=== PATIENT | male | born 1975 | race Caucasian/White ===

== ENCOUNTER 2017-02-16 11:15 | Inpatient (IN) | payer OTHER ==
[2017-02-16] MEDS ORDERED: Sodium Chloride 0.9% 1,000 ML IV ONE ×3 (11:42→13:04)
[2017-02-16] MEDS ORDERED: Sodium Chloride 0.9% 10 ML Syringe FLUSH PRN (11:42)
[2017-02-16] MEDS ORDERED: Morphine 2 MG/ML Syringe IVPUSH ONE (11:42)
[2017-02-16] MEDS ORDERED: Dicyclomine 10 MG Cap PO ONE (11:42)
[2017-02-16] MEDS ORDERED: Ondansetron 4 MG/2 ML SDV IVPUSH ONE (11:42)
[2017-02-16] MEDS ORDERED: Sodium Chloride 0.9% 2.5 ML Syringe FLUSH PRN (11:42)
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
[2017-02-16 12:42] LABS: CHLORIDE,CL 101 mmol/L (98-110); SODIUM,NA 140 mmol/L (136-146)
--- NOTE | 2017-02-16 13:07 | CR ---
EXAMINATION: Abdomen HISTORY: Pain COMPARISON: None TECHNIQUE: AP and upright views FINDINGS: No free air under the diaphragm. There is gas noted within the transverse and sigmoid colon . No definite rectal gas. There are a few loops of prominent small bowel measuring up to 4.4 cm with scattered bubbles of gas also demonstrated throughout the small bowel. No organomegaly. No abnormal c alcifications project over the kidneys. Postsurgical changes noted within the lumbar spine. There is an IVC filter noted. Degenerative changes noted within the hips, right greater than left. IMPRESSION: 1. Few dilated loops of small bowel with a moderate amount of gas noted within the colon. This could represent an ileus or partial bowel obstruction.
[2017-02-16] MEDS ORDERED: Iopamidol 755 MG/ML 500 ML Multipack Bottle IVPUSH STA (13:49)
[2017-02-16] MEDS ORDERED: Ketorolac 30 MG/ML SDV IVPUSH ONE (15:12)
--- NOTE | 2017-02-16 15:17 | CT ---
CT of the abdomen and pelvis with contrast. HISTORY: Pain TECHNIQUE: Axial CT images were obtained of the abdomen and pelvis following administration of 100 mL of Isovue-370 in the left hand without complication. Coronal and sagittal reconstructions obtained. FINDINGS: The lung bases are clear, no pleural effusion. Mild atelectasis noted. The heart is normal in size wi thout a pericardial effusion. The liver appears hypodense, otherwise unremarkable. The spleen, right adrenal gland, and pancreas ap pear normal. There is a 1.7 cm left adrenal myelolipoma. The gallbladder demonstrates several folds, otherwise unremarkable. No bulky retroperitoneal lymphadenopathy or abdominal ascites. The kidneys enhance and function symmetrically without evidence of obstructive uropathy. There are mildly prominent loops of small bowel noted which are fluid-filled with several air-fluid l evels. There appears to be a transition point within the ileum within the right lower quadrant. The i leum distal to this is decompressed. There is however small amount of fluid and gas within the colon. Inflammation or stranding. The appendix appears normal. There is a small amount of free pelvic fluid . The urinary bladder is normal. No free air. Bilateral posterior fusion hardware is noted extending from L1 to L4 traversing a healed L3 fracture. IMPRESSION: 1. Mildly prominent loops of small bowel with air-fluid levels noted with a transition point within t he mid to distal ileum. This likely represents at least a partial bowel obstruction. 2. Mild fatty infiltration of the liver. 3. Trace free pelvic fluid. 4. Left adrenal myelolipoma.
[2017-02-16] MEDS ORDERED: Dextrose 5%-0.9% NaCl with KCl 1,000 ML IV SCH (15:45)
[2017-02-16] MEDS: Sodium Chloride 0.9% 1,000 ML IV SCH ×2 (16:00→22:43)
[2017-02-16] MEDS: Morphine 2 MG/ML Syringe IVPUSH PRN ×3 (18:24→22:53)
[2017-02-16] MEDS: Ciprofloxacin in D5W 400 MG in Premix Bag 1 BAG IV SCH ×2 (22:44)
[2017-02-16] MEDS: metroNIDAZOLE/Normal Saline 500 MG in Premix Bag 1 BAG IV SCH (23:55)
[2017-02-17] MEDS: Morphine 2 MG/ML Syringe IVPUSH PRN ×7 (01:06→21:37)
[2017-02-17 05:28] LABS: CHLORIDE,CL 108 mmol/L (98-110); SODIUM,NA 144 mmol/L (136-146)
[2017-02-17] MEDS: metroNIDAZOLE/Normal Saline 500 MG in Premix Bag 1 BAG IV SCH ×3 (06:22→23:14)
[2017-02-17] MEDS: Ciprofloxacin in D5W 400 MG in Premix Bag 1 BAG IV SCH ×4 (09:05→21:57)
[2017-02-17] MEDS: Sodium Chloride 0.9% 1,000 ML IV SCH ×2 (09:06→18:34)
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
--- NOTE | 2017-02-17 10:25 | PCM.PN ---
- Review of Systems Systems Review Comment:: abdominal pain improving, had several loose stools - Patient Data Vitals - Most Recent: Last Vital Signs Temp 37.6 C 02/17/17 08:00 Pulse 101 H 02/17/17 08:00 Resp 16 02/17/17 08:00 BP 137/84 02/17/17 08:00 Pulse Ox 91 L 02/17/17 08:00 Weight - Most Recent: 97 kg I&O - Last 24 Hours: Intake & Output 02/16/17 02/17/17 02/17/17 22:59 06:59 14:59 Intake Total 1200 440 200 Output Total 0 350 Balance 1200 90 200 Lab Results Last 24 Hours: Laboratory Results - last 24 hr 02/16/17 02/17/17 02/17/17 Range/Units 19:15 04:45 04:45 WBC 3.61 L (4.0-11.0) K/uL RBC 4.76 (4.50-5.90) M/uL Hgb 13.6 (13.0-17.0) g/dL Hct 41.4 (38.0-50.0) % MCV 87.0 (80.0-98.0) fL MCH 28.6 (27.0-32.0) pg MCHC 32.9 (31.0-37.0) g/dL RDW Std Deviation 44.2 (28.0-62.0) fl RDW Coeff of Jarret 14 (11.0-15.0) % Plt Count 174 (150-400) K/uL MPV 9.60 (7.40-12.00) fL Add Manual Diff YES Neutrophils % (Manual) 57 (48.0-80.0) % Band Neutrophils % 11 % Lymphocytes % (Manual) 21 (16.0-40.0) % Monocytes % (Manual) 11 (0.0-15.0) % Nucleated RBC % 0.0 /100WBC Absolute Seg Neuts 2.1 Band Neutrophils # 0.4 Lymphocytes # (Manual) 0.8 Monocytes # (Manual) 0.4 Nucleated RBCs # 0 K/uL Sodium 144 (136-146) mmol/L Potassium 3.5 (3.5-5.1) mmol/L Chloride 108 (98-110) mmol/L Carbon Dioxide 26 (21-31) mmol/L BUN 17 (6.0-23.0) mg/dL Creatinine 0.8 (0.6-1.5) mg/dL Est Cr Clr Drug Dosing 138.43 mL/min Estimated GFR (MDRD) > 60.0 ml/min Glucose 101 (60-110) mg/dL Calcium 7.8 L (8.8-10.8) mg/dL Urine Color YELLOW Urine Appearance CLEAR Urine pH 5.5 (5.0-8.0) Ur Specific [place] 1.015 (1.001-1.035) Urine Protein TRACE (NEGATIVE) mg/dL Urine Glucose (UA) NEGATIVE (NEGATIVE) mg/dL Urine Ketones 40 H (NEGATIVE) mg/dL Urine Occult Blood TRACE-INTACT (NEGATIVE) Urine Nitrite NEGATIVE (NEGATIVE) Urine Bilirubin SMALL H (NEGATIVE) Urine Ictotest NEGATIVE Urine Urobilinogen 1.0 (<2.0) EU/dL Ur Leukocyte Esterase NEGATIVE (NEGATIVE) Urine RBC 0-1 (0-2/HPF) Urine WBC 0-1 (0-5/HPF) Ur Epithelial Cells OCCASIONAL (NONE-FEW) Urine Bacteria FEW (NEGATIVE) Urine Mucus LIGHT (NONE-MOD) Simone Results Last 24 Hours: Microbiology 02/16/17 19:15 Campylobacter Antigen Assay - Final Stool / Feces - Stool, Liquid NEGATIVE CAMPYLOBACTER AG 02/16/17 19:15 Stool for WBCs - Final Stool / Feces - Stool, Liquid POSITIVE FOR WBC'S Med Orders - Current: Current Medications Sodium Chloride (Normal Saline) 1,000 mls @ 125 mls/hr IV ASDIRECTED [facility] Last Admin: 02/17/17 09:06 Dose: 125 mls/hr Ciprofloxacin/Dextrose 400 mg/ (Premix) 200 mls @ 200 mls/hr IV Q12H [facility] Last Admin: 02/17/17 09:05 Dose: 200 mls/hr Metronidazole 500 mg/ Premix 100 mls @ 100 mls/hr IV Q8H [facility] Last Admin: 02/17/17 06:22 Dose: 100 mls/hr Morphine Sulfate (Morphine) 2 mg IVPUSH Q4H PRN PRN Reason: Pain (severe 7-10) Stop: 02/17/17 17:20 Sodium Chloride (Saline Flush) 10 ml FLUSH ASDIRECTED PRN PRN Reason: Keep Vein Open Last Admin: 02/16/17 12:04 Dose: 10 ml Sodium Chloride (Saline Flush) 2.5 ml FLUSH ASDIRECTED PRN PRN Reason: Keep Vein Open Last Admin: 02/16/17 12:04 Dose: 2.5 ml Discontinued Medications Dicyclomine HCl (Bentyl) 20 mg PO ONETIME ONE Stop: 02/16/17 11:43 Last Admin: 02/16/17 12:04 Dose: 20 mg Sodium Chloride (Normal Saline) 1,000 mls @ 999 mls/hr IV STAT ONE Stop: 02/16/17 12:42 Last Admin: 02/16/17 12:05 Dose: 999 mls/hr Sodium Chloride (Normal Saline) 1,000 mls @ 999 mls/hr IV STAT ONE Stop: 02/16/17 14:03 Last Admin: 02/16/17 13:09 Dose: 999 mls/hr Sodium Chloride (Normal Saline) 1,000 mls @ 999 mls/hr IV .BOLUS ONE Stop: 02/16/17 14:04 Last Admin: 02/16/17 16:22 Dose: Not Given Potassium Chloride/Dextrose/Sod Cl (D5 Ns With 20 Meq Kcl) 1,000 mls @ 150 mls/ hr IV ASDIRECTED [facility] Iopamidol (Isovue Multipack-370 (76%)) 100 ml IVPUSH ONETIME STA Stop: 02/16/17 13:50 Last Admin: 02/16/17 13:50 Dose: 100 ml Ketorolac Tromethamine (Toradol) 30 mg IVPUSH ONETIME ONE Stop: 02/16/17 15:13 Last Admin: 02/16/17 15:16 Dose: 30 mg Morphine Sulfate (Morphine) 4 mg IVPUSH ONETIME ONE Stop: 02/16/17 11:43 Last Admin: 02/16/17 12:03 Dose: 4 mg Morphine Sulfate (Morphine) 2 mg IVPUSH Q2H PRN PRN Reason: Pain (severe 7-10) Stop: 02/17/17 17:20 Last Admin: 02/17/17 09:04 Dose: 2 mg Ondansetron HCl (Zofran) 4 mg IVPUSH ONETIME ONE Stop: 02/16/17 11:43 Last Admin: 02/16/17 12:03 Dose: 4 mg - Exam General: Alert, Oriented HEENT: Mucous Membr. Moist/[place] Neck: Supple Cardiovascular: Regular Rate, Regular Rhythm GI/Abdominal Exam: Normal Bowel Sounds, Soft, Non-Tender, No Distention Extremities: Non-Tender, No Pedal Edema - Problem List Review Problem List Initiated/Reviewed/Updated: Yes - My Orders Last 24 Hours: My Active Orders 02/16/17 16:00 Sodium Chloride 0.9% [Normal Saline] 1,000 ml IV ASDIRECTED 02/16/17 17:20 Intake and Output [RC] QSHIFT Oxygen Therapy [RC] PRN Up ad Ora [RC] ASDIRECTED Up to Chair [RC] ASDIRECTED Vital Signs [RC] Q4H Sequential Compression Device [OM.PC] Per Unit Routine Resuscitation Status Routine 02/16/17 17:21 Antiembolic Devices [RC] PER UNIT ROUTINE 02/16/17 22:00 Ciprofloxacin in D5W [Cipro in D5W 400 MG/200 ML] 400 mg Premix Bag 1 bag IV Q12H 02/16/17 22:30 metroNIDAZOLE/Normal Saline [Flagyl 500 MG in NS 100 ML] 500 mg Premix Bag 1 bag IV Q8H 02/17/17 09:56 Morphine 2 mg IVPUSH Q4H PRN 02/17/17 Lunch Clear Liquid Diet [DIET] 02/18/17 05:11 BASIC METABOLIC PANEL,BMP [CHEM] AM CBC WITH AUTO DIFF [HEME] AM 02/19/17 05:11 BASIC METABOLIC PANEL,BMP [CHEM] AM CBC WITH AUTO DIFF [HEME] AM - Plan Plan:: 41 yo male admitted with travelers diarrhea which has developed into a partial bowel obstruction. Treating with Ciprofloxcin and Flagyl. We will start clear liquids.
[2017-02-17] MEDS: Ondansetron 4 MG/2 ML SDV IVPUSH PRN ×2 (15:35→21:37)
[2017-02-17] MEDS: LORazepam 2 MG/ML MDV IVPUSH PRN ×2 (15:36→23:15)
--- NOTE | 2017-02-17 16:45 | CR ---
EXAMINATION: Abdomen HISTORY: Partial small bowel obstruction COMPARISON: CT from the day prior. TECHNIQUE: AP and upright views of the abdomen FINDINGS: Again noted are multiple dilated loops of small bowel measuring up to 5 cm. Gas is noted wi thin the colon to the sigmoid level. Postsurgical changes are noted in the lumbar spine. No abnormal calcifications. No organomegaly. Degenerative changes noted within the hips. There is an IVC filter. IMPRESSION: 1. Persistent dilated loops of small bowel without significant change.
[2017-02-18] MEDS: Morphine 2 MG/ML Syringe IVPUSH PRN ×4 (03:21→23:41)
[2017-02-18] MEDS: Ondansetron 4 MG/2 ML SDV IVPUSH PRN (03:21)
[2017-02-18] MEDS: Sodium Chloride 0.9% 1,000 ML IV SCH ×3 (04:38→23:07)
[2017-02-18 05:47] LABS: CHLORIDE,CL 105 mmol/L (98-110); SODIUM,NA 141 mmol/L (136-146)
[2017-02-18] MEDS: metroNIDAZOLE/Normal Saline 500 MG in Premix Bag 1 BAG IV SCH ×3 (06:37→23:46)
[2017-02-18] MEDS: LORazepam 2 MG/ML MDV IVPUSH PRN ×2 (08:59→19:53)
[2017-02-18] MEDS: Ciprofloxacin in D5W 400 MG in Premix Bag 1 BAG IV SCH ×4 (08:59→22:32)
--- NOTE | 2017-02-18 09:12 | PCM.SN ---
- Free Text/Narrative Note: consult was called for possible bowel obstruction, but pt just received morphine and is sound sleeping and snoring, cannot be awaken with loud noice or name calling; will see tomorrow
--- NOTE | 2017-02-18 09:21 | PCM.SN ---
- Free Text/Narrative Note: pt seen, chart reviewed; resolving ileus vs pSBO, will start clear liquid diet, and do not advance; will follow w no [id number]
--- NOTE | 2017-02-18 10:53 | PCM.PN ---
- Review of Systems Systems Review Comment:: abdominal pain is improving, had small liquid bowel movement last night. - Patient Data Vitals - Most Recent: Last Vital Signs Temp 36.6 C 02/18/17 08:00 Pulse 84 02/18/17 08:00 Resp 20 02/18/17 08:00 BP 133/84 02/18/17 08:00 Pulse Ox 96 02/18/17 08:00 Weight - Most Recent: 97 kg I&O - Last 24 Hours: Intake & Output 02/17/17 02/18/17 02/18/17 22:59 06:59 14:59 Intake Total 2863 1340 200 Output Total 5 Balance 2863 1335 200 Lab Results Last 24 Hours: Laboratory Results - last 24 hr 02/18/17 02/18/17 Range/Units 04:53 04:53 WBC 5.39 (4.0-11.0) K/uL RBC 4.71 (4.50-5.90) M/uL Hgb 13.5 (13.0-17.0) g/dL Hct 40.4 (38.0-50.0) % MCV 85.8 (80.0-98.0) fL MCH 28.7 (27.0-32.0) pg MCHC 33.4 (31.0-37.0) g/dL RDW Std Deviation 42.3 (28.0-62.0) fl RDW Coeff of Jarret 13 (11.0-15.0) % Plt Count 164 (150-400) K/uL MPV 9.40 (7.40-12.00) fL Add Manual Diff YES Neutrophils % (Manual) 62 (48.0-80.0) % Band Neutrophils % 10 % Lymphocytes % (Manual) 18 (16.0-40.0) % Monocytes % (Manual) 9 (0.0-15.0) % Eosinophils % (Manual) 1 (0.0-7.0) % Nucleated RBC % 0.0 /100WBC Absolute Seg Neuts 3.3 (1.4-5.7) Band Neutrophils # 0.5 Lymphocytes # (Manual) 1.0 (0.6-2.4) Monocytes # (Manual) 0.5 (0.0-0.8) Eosinophils # (Manual) 0.1 (0.0-0.7) Nucleated RBCs # 0 K/uL Sodium 141 (136-146) mmol/L Potassium 3.4 L (3.5-5.1) mmol/L Chloride 105 (98-110) mmol/L Carbon Dioxide 27 (21-31) mmol/L BUN 10 (6.0-23.0) mg/dL Creatinine 0.7 (0.6-1.5) mg/dL Est Cr Clr Drug Dosing 158.20 mL/min Estimated GFR (MDRD) > 60.0 ml/min Glucose 100 (60-110) mg/dL Calcium 7.8 L (8.8-10.8) mg/dL Simone Results Last 24 Hours: Microbiology 02/16/17 19:15 Campylobacter Antigen Assay - Final Stool / Feces - Stool, Liquid NEGATIVE CAMPYLOBACTER AG - Final NEGATIVE FOR SHIGA TOXIN 1 - Final NEGATIVE FOR SHIGA TOXIN 2 Med Orders - Current: Current Medications Sodium Chloride (Normal Saline) 1,000 mls @ 125 mls/hr IV ASDIRECTED [facility] Last Admin: 02/18/17 04:38 Dose: 125 mls/hr Ciprofloxacin/Dextrose 400 mg/ (Premix) 200 mls @ 200 mls/hr IV Q12H [facility] Last Admin: 02/18/17 08:59 Dose: 200 mls/hr Metronidazole 500 mg/ Premix 100 mls @ 100 mls/hr IV Q8H [facility] Last Admin: 02/18/17 06:37 Dose: 100 mls/hr Lorazepam (Ativan) 1 mg IVPUSH Q6H PRN PRN Reason: Anxiety Last Admin: 02/18/17 08:59 Dose: 1 mg Morphine Sulfate (Morphine) 2 mg IVPUSH Q2H PRN PRN Reason: Pain Last Admin: 02/18/17 06:42 Dose: 2 mg Ondansetron HCl (Zofran) 4 mg IVPUSH Q4H PRN PRN Reason: Nausea Last Admin: 02/18/17 03:21 Dose: 4 mg Sodium Chloride (Saline Flush) 10 ml FLUSH ASDIRECTED PRN PRN Reason: Keep Vein Open Last Admin: 02/16/17 12:04 Dose: 10 ml Sodium Chloride (Saline Flush) 2.5 ml FLUSH ASDIRECTED PRN PRN Reason: Keep Vein Open Last Admin: 02/16/17 12:04 Dose: 2.5 ml Discontinued Medications Dicyclomine HCl (Bentyl) 20 mg PO ONETIME ONE Stop: 02/16/17 11:43 Last Admin: 02/16/17 12:04 Dose: 20 mg Sodium Chloride (Normal Saline) 1,000 mls @ 999 mls/hr IV STAT ONE Stop: 02/16/17 12:42 Last Admin: 02/16/17 12:05 Dose: 999 mls/hr Sodium Chloride (Normal Saline) 1,000 mls @ 999 mls/hr IV STAT ONE Stop: 02/16/17 14:03 Last Admin: 02/16/17 13:09 Dose: 999 mls/hr Sodium Chloride (Normal Saline) 1,000 mls @ 999 mls/hr IV .BOLUS ONE Stop: 02/16/17 14:04 Last Admin: 02/16/17 16:22 Dose: Not Given Potassium Chloride/Dextrose/Sod Cl (D5 Ns With 20 Meq Kcl) 1,000 mls @ 150 mls/ hr IV ASDIRECTED [facility] Iopamidol (Isovue Multipack-370 (76%)) 100 ml IVPUSH ONETIME STA Stop: 02/16/17 13:50 Last Admin: 02/16/17 13:50 Dose: 100 ml Ketorolac Tromethamine (Toradol) 30 mg IVPUSH ONETIME ONE Stop: 02/16/17 15:13 Last Admin: 02/16/17 15:16 Dose: 30 mg Morphine Sulfate (Morphine) 4 mg IVPUSH ONETIME ONE Stop: 02/16/17 11:43 Last Admin: 02/16/17 12:03 Dose: 4 mg Morphine Sulfate (Morphine) 2 mg IVPUSH Q2H PRN PRN Reason: Pain (severe 7-10) Stop: 02/17/17 17:20 Last Admin: 02/17/17 09:04 Dose: 2 mg Morphine Sulfate (Morphine) 2 mg IVPUSH Q4H PRN PRN Reason: Pain (severe 7-10) Stop: 02/17/17 17:20 Last Admin: 02/17/17 17:03 Dose: 2 mg Ondansetron HCl (Zofran) 4 mg IVPUSH ONETIME ONE Stop: 02/16/17 11:43 Last Admin: 02/16/17 12:03 Dose: 4 mg - Exam General: Alert, Oriented HEENT: Mucous Membr. Moist/[place] Lungs: Clear to Auscultation, Normal Respiratory Effort Cardiovascular: Regular Rate, Regular Rhythm GI/Abdominal Exam: Soft, Tender (periumbilical) Extremities: No Pedal Edema Skin: Warm, Dry, Intact - Problem List Review Problem List Initiated/Reviewed/Updated: Yes - My Orders Last 24 Hours: My Active Orders 02/17/17 13:58 LORazepam [Ativan] 1 mg IVPUSH Q6H PRN Ondansetron [Zofran] 4 mg IVPUSH Q4H PRN 02/17/17 17:35 Morphine 2 mg IVPUSH Q2H PRN 02/17/17 17:36 Consult to Physician [CONS] Routine 02/17/17 17:41 Notify Provider Consults [RC] ASDIRECTED 02/17/17 17:58 NG [Nasogastric Orogastric Tube Insertion] [OM.PC] Routine 02/18/17 10:49 Admission Status [Patient Status] [ADT] Routine 02/18/17 Lunch Clear Liquid Diet [DIET] 02/19/17 05:11 BASIC METABOLIC PANEL,BMP [CHEM] AM CBC WITH AUTO DIFF [HEME] AM - Plan Plan:: 41 yo male admitted with travelers diarrhea which has developed into a partial bowel obstruction. Patient did not tolerate clear liquids yesterday and was made NPO and Dr. Yan was consulted. This morning patient's abdominal pain is improving so per Dr. Yan's recommendation will try clear liquids again.
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
[2017-02-18] MEDS ORDERED: oxyCODONE 5 MG Tab PO PRN (16:09)
[2017-02-19 05:37] LABS: CHLORIDE,CL 103 mmol/L (98-110); SODIUM,NA 139 mmol/L (136-146)
[2017-02-19] MEDS: metroNIDAZOLE/Normal Saline 500 MG in Premix Bag 1 BAG IV SCH ×3 (05:46→21:42)
[2017-02-19] MEDS: Morphine 2 MG/ML Syringe IVPUSH PRN (08:04)
[2017-02-19] MEDS ORDERED: Sodium Chloride 0.9% with KCl 1,000 ML IV SCH (08:15)
[2017-02-19] MEDS: Ondansetron 4 MG/2 ML SDV IVPUSH PRN (08:25)
[2017-02-19] MEDS ORDERED: Magnesium Sulfate/Water 4 GM in Premix Bag 1 BAG IV ONE (08:32)
--- NOTE | 2017-02-19 08:32 | PCM.PN ---
<Baluch,Jan - Last Filed: 02/19/17 08:24> - General Info Date of Service: 02/19/17 Admission Dx/Problem (Free Text): Admission Diagnosis/Problem Admission Diagnosis/Problem Intestinal obstruction Subjective Update: Patients stated no diarrhea or vomiting yesterday. Had clear liquids yesterday and developed nausea. Had diarrhea this morning. Attempted to eat jello this morning which caused vomiting. Abdominal pain 10/17. No fever/chills/night sweats. Functional Status: Reports: Ambulating, Urinating. Denies: Tolerating Diet - Review of Systems General: Denies: Fever, Chills, Night Sweats, Appetite HEENT: Reports: No Symptoms Pulmonary: Reports: No Symptoms Cardiovascular: Reports: No Symptoms Gastrointestinal: Reports: Abdominal Pain, Decreased Appetite, Diarrhea, Flatus , Nausea, Vomiting Genitourinary: Reports: No Symptoms Musculoskeletal: Reports: No Symptoms Skin: Reports: No Symptoms Neurological: Reports: No Symptoms - Patient Data Vitals - Most Recent: Last Vital Signs Temp 37.2 C 02/19/17 04:00 Pulse 80 02/19/17 04:00 Resp 18 02/19/17 04:00 BP 138/72 02/19/17 04:00 Pulse Ox 96 02/19/17 04:00 Weight - Most Recent: 97 kg I&O - Last 24 Hours: Intake & Output 02/18/17 02/19/17 02/19/17 22:59 06:59 14:59 Intake Total 3078 2163 Output Total 700 Balance 3078 1463 Lab Results Last 24 Hours: Laboratory Results - last 24 hr 02/19/17 02/19/17 02/19/17 Range/Units 04:46 04:46 04:46 WBC 5.04 (4.0-11.0) K/uL RBC 4.56 (4.50-5.90) M/uL Hgb 12.8 L (13.0-17.0) g/dL Hct 38.2 (38.0-50.0) % MCV 83.8 (80.0-98.0) fL MCH 28.1 (27.0-32.0) pg MCHC 33.5 (31.0-37.0) g/dL RDW Std Deviation 38.6 (28.0-62.0) fl RDW Coeff of Jarret 13 (11.0-15.0) % Plt Count 162 (150-400) K/uL MPV 9.20 (7.40-12.00) fL Neut % (Auto) 65.7 (48.0-80.0) % Lymph % (Auto) 19.4 (16.0-40.0) % [place] % (Auto) 13.1 (0.0-15.0) % Eos % (Auto) 1.4 (0.0-7.0) % Baso % (Auto) 0.4 (0.0-1.5) % Neut # (Auto) 3.3 (1.4-5.7) K/uL Lymph # (Auto) 1.0 (0.6-2.4) K/uL [place] # (Auto) 0.7 (0.0-0.8) K/uL Eos # (Auto) 0.1 (0.0-0.7) K/uL Baso # (Auto) 0.0 (0.0-0.1) K/uL Nucleated RBC % 0.0 /100WBC Nucleated RBCs # 0 K/uL Sodium 139 (136-146) mmol/L Potassium 3.4 L (3.5-5.1) mmol/L Chloride 103 (98-110) mmol/L Carbon Dioxide 28 (21-31) mmol/L BUN 7 (6.0-23.0) mg/dL Creatinine 0.7 (0.6-1.5) mg/dL Est Cr Clr Drug Dosing 158.20 mL/min Estimated GFR (MDRD) > 60.0 ml/min Glucose 94 (60-110) mg/dL Calcium 8.0 L (8.8-10.8) mg/dL Magnesium 1.5 (1.5-2.3) mEq/L Med Orders - Current: Current Medications Sodium Chloride (Normal Saline) 1,000 mls @ 125 mls/hr IV ASDIRECTED [facility] Last Admin: 02/18/17 23:07 Dose: 125 mls/hr Ciprofloxacin/Dextrose 400 mg/ (Premix) 200 mls @ 200 mls/hr IV Q12H [facility] Last Admin: 02/18/17 22:32 Dose: 200 mls/hr Metronidazole 500 mg/ Premix 100 mls @ 100 mls/hr IV Q8H [facility] Last Admin: 02/19/17 05:46 Dose: 100 mls/hr Potassium Chloride/Sodium Chloride (Normal Saline With 40 Meq Kcl) 1,000 mls @ 125 mls/hr IV ASDIRECTED [facility] Lorazepam (Ativan) 1 mg IVPUSH Q6H PRN PRN Reason: Anxiety Last Admin: 02/18/17 19:53 Dose: 1 mg Morphine Sulfate (Morphine) 2 mg IVPUSH Q2H PRN PRN Reason: Pain Last Admin: 02/19/17 08:04 Dose: 2 mg Ondansetron HCl (Zofran) 4 mg IVPUSH Q4H PRN PRN Reason: Nausea Last Admin: 02/18/17 03:21 Dose: 4 mg Oxycodone HCl (Oxycodone) 5 mg PO Q4H PRN PRN Reason: Pain Last Admin: 02/18/17 16:24 Dose: 5 mg Sodium Chloride (Saline Flush) 10 ml FLUSH ASDIRECTED PRN PRN Reason: Keep Vein Open Last Admin: 02/16/17 12:04 Dose: 10 ml Sodium Chloride (Saline Flush) 2.5 ml FLUSH ASDIRECTED PRN PRN Reason: Keep Vein Open Last Admin: 02/16/17 12:04 Dose: 2.5 ml Discontinued Medications Dicyclomine HCl (Bentyl) 20 mg PO ONETIME ONE Stop: 02/16/17 11:43 Last Admin: 02/16/17 12:04 Dose: 20 mg Sodium Chloride (Normal Saline) 1,000 mls @ 999 mls/hr IV STAT ONE Stop: 02/16/17 12:42 Last Admin: 02/16/17 12:05 Dose: 999 mls/hr Sodium Chloride (Normal Saline) 1,000 mls @ 999 mls/hr IV STAT ONE Stop: 02/16/17 14:03 Last Admin: 02/16/17 13:09 Dose: 999 mls/hr Sodium Chloride (Normal Saline) 1,000 mls @ 999 mls/hr IV .BOLUS ONE Stop: 02/16/17 14:04 Last Admin: 02/16/17 16:22 Dose: Not Given Potassium Chloride/Dextrose/Sod Cl (D5 Ns With 20 Meq Kcl) 1,000 mls @ 150 mls/ hr IV ASDIRECTED [facility] Iopamidol (Isovue Multipack-370 (76%)) 100 ml IVPUSH ONETIME STA Stop: 02/16/17 13:50 Last Admin: 02/16/17 13:50 Dose: 100 ml Ketorolac Tromethamine (Toradol) 30 mg IVPUSH ONETIME ONE Stop: 02/16/17 15:13 Last Admin: 02/16/17 15:16 Dose: 30 mg Morphine Sulfate (Morphine) 4 mg IVPUSH ONETIME ONE Stop: 02/16/17 11:43 Last Admin: 02/16/17 12:03 Dose: 4 mg Morphine Sulfate (Morphine) 2 mg IVPUSH Q2H PRN PRN Reason: Pain (severe 7-10) Stop: 02/17/17 17:20 Last Admin: 02/17/17 09:04 Dose: 2 mg Morphine Sulfate (Morphine) 2 mg IVPUSH Q4H PRN PRN Reason: Pain (severe 7-10) Stop: 02/17/17 17:20 Last Admin: 02/17/17 17:03 Dose: 2 mg Ondansetron HCl (Zofran) 4 mg IVPUSH ONETIME ONE Stop: 02/16/17 11:43 Last Admin: 02/16/17 12:03 Dose: 4 mg - Exam General: Alert, Oriented, Cooperative, Mild Distress HEENT: Pupils Equal, Pupils Reactive Neck: Supple Lungs: Clear to Auscultation, Normal Respiratory Effort Cardiovascular: Regular Rate, Regular Rhythm GI/Abdominal Exam: Distended, Tender, Other (bowel sounds present ). No: Guarding, Rigid, Rebound Extremities: Other (LLE: diffuse atrophy ) Neurological: No New Focal Deficit - Problem List Review Problem List Initiated/Reviewed/Updated: Yes - My Orders Last 24 Hours: My Active Orders 02/19/17 08:15 Sodium Chloride 0.9% with KCl [Normal Saline with 40 mEq KCl] 1,000 ml IV ASDIRECTED - Plan Plan:: 41 yo male with history of Spinal cord Injury admitted for Travellers Diarrhea complicated by Partial Bowel Obstruction. Dr. Yan, General Surgery has been consulted and is on case. Appreciate the rec's. 1. Partial Bowel Obstruction: possibly related to patients history of spinal cord injury. Diet was advanced to clear liquids yesterday. Diarrhea/Vomiting/ Pain worsening. Abdominal distension present this morning. Will change diet back to NPO. Diet is to be advanced as per Dr. Yan's orders. 2. Travellers Diarrhea: on IV Metro and Cipro. Diarrhea and pain worst this morning. Negative Campylobacter/Shiga Toxin. Awaiting Stool Culture. 3. Hypokalemia: Potassium 3.4 in AM. Administer 40 meq IV. check Mg level. 4. Hypomagnasemia: Magnesium 1.5 this morning. Administer 4 gm IV 5. DVT Prophylaxis: SCD's. consider starting Lovenox. <Nael Almonte - Last Filed: 02/19/17 20:15> - Patient Data Vitals - Most Recent: Last Vital Signs Temp 36.7 C 02/19/17 15:45 Pulse 72 02/19/17 15:45 Resp 18 02/19/17 15:45 BP 127/79 02/19/17 15:45 Pulse Ox 95 02/19/17 15:45 I&O - Last 24 Hours: Intake & Output 02/19/17 02/19/17 02/19/17 06:59 14:59 22:59 Intake Total 2163 1600 197 Output Total 700 700 Balance 1463 1600 -503 Lab Results Last 24 Hours: Laboratory Results - last 24 hr 02/19/17 02/19/17 02/19/17 Range/Units 04:46 04:46 04:46 WBC 5.04 (4.0-11.0) K/uL RBC 4.56 (4.50-5.90) M/uL Hgb 12.8 L (13.0-17.0) g/dL Hct 38.2 (38.0-50.0) % MCV 83.8 (80.0-98.0) fL MCH 28.1 (27.0-32.0) pg MCHC 33.5 (31.0-37.0) g/dL RDW Std Deviation 38.6 (28.0-62.0) fl RDW Coeff of Jarret 13 (11.0-15.0) % Plt Count 162 (150-400) K/uL MPV 9.20 (7.40-12.00) fL Neut % (Auto) 65.7 (48.0-80.0) % Lymph % (Auto) 19.4 (16.0-40.0) % [place] % (Auto) 13.1 (0.0-15.0) % Eos % (Auto) 1.4 (0.0-7.0) % Baso % (Auto) 0.4 (0.0-1.5) % Neut # (Auto) 3.3 (1.4-5.7) K/uL Lymph # (Auto) 1.0 (0.6-2.4) K/uL [place] # (Auto) 0.7 (0.0-0.8) K/uL Eos # (Auto) 0.1 (0.0-0.7) K/uL Baso # (Auto) 0.0 (0.0-0.1) K/uL Nucleated RBC % 0.0 /100WBC Nucleated RBCs # 0 K/uL Sodium 139 (136-146) mmol/L Potassium 3.4 L (3.5-5.1) mmol/L Chloride 103 (98-110) mmol/L Carbon Dioxide 28 (21-31) mmol/L BUN 7 (6.0-23.0) mg/dL Creatinine 0.7 (0.6-1.5) mg/dL Est Cr Clr Drug Dosing 158.20 mL/min Estimated GFR (MDRD) > 60.0 ml/min Glucose 94 (60-110) mg/dL Calcium 8.0 L (8.8-10.8) mg/dL Magnesium 1.5 (1.5-2.3) mEq/L Med Orders - Current: Current Medications Sodium Chloride (Normal Saline) 1,000 mls @ 125 mls/hr IV ASDIRECTED [facility] Last Admin: 02/18/17 23:07 Dose: 125 mls/hr Metronidazole 500 mg/ Premix 100 mls @ 100 mls/hr IV Q8H [facility] Last Admin: 02/19/17 13:43 Dose: 100 mls/hr Ciprofloxacin/Dextrose 400 mg/ (Premix) 200 mls @ 200 mls/hr IV Q12H [facility] Last Admin: 02/19/17 12:22 Dose: 200 mls/hr Ketorolac Tromethamine (Toradol) 30 mg IVPUSH Q8H PRN PRN Reason: Pain Stop: 02/24/17 12:34 Last Admin: 02/19/17 14:18 Dose: 30 mg Lorazepam (Ativan) 1 mg IVPUSH Q6H PRN PRN Reason: Anxiety Last Admin: 02/18/17 19:53 Dose: 1 mg Ondansetron HCl (Zofran) 4 mg IVPUSH Q4H PRN PRN Reason: Nausea Last Admin: 02/19/17 08:25 Dose: 4 mg Sodium Chloride (Saline Flush) 10 ml FLUSH ASDIRECTED PRN PRN Reason: Keep Vein Open Last Admin: 02/16/17 12:04 Dose: 10 ml Sodium Chloride (Saline Flush) 2.5 ml FLUSH ASDIRECTED PRN PRN Reason: Keep Vein Open Last Admin: 02/16/17 12:04 Dose: 2.5 ml Discontinued Medications Dicyclomine HCl (Bentyl) 20 mg PO ONETIME ONE Stop: 02/16/17 11:43 Last Admin: 02/16/17 12:04 Dose: 20 mg Sodium Chloride (Normal Saline) 1,000 mls @ 999 mls/hr IV STAT ONE Stop: 02/16/17 12:42 Last Admin: 02/16/17 12:05 Dose: 999 mls/hr Sodium Chloride (Normal Saline) 1,000 mls @ 999 mls/hr IV STAT ONE Stop: 02/16/17 14:03 Last Admin: 02/16/17 13:09 Dose: 999 mls/hr Sodium Chloride (Normal Saline) 1,000 mls @ 999 mls/hr IV .BOLUS ONE Stop: 02/16/17 14:04 Last Admin: 02/16/17 16:22 Dose: Not Given Potassium Chloride/Dextrose/Sod Cl (D5 Ns With 20 Meq Kcl) 1,000 mls @ 150 mls/ hr IV ASDIRECTED [facility] Ciprofloxacin/Dextrose 400 mg/ (Premix) 200 mls @ 200 mls/hr IV Q12H [facility] Last Admin: 02/19/17 10:37 Dose: Not Given Potassium Chloride/Sodium Chloride (Normal Saline With 40 Meq Kcl) 1,000 mls @ 125 mls/hr IV ASDIRECTED [facility] Stop: 02/19/17 16:14 Last Admin: 02/19/17 09:19 Dose: 125 mls/hr Magnesium Sulfate 4 gm/ Premix 100 mls @ 50 mls/hr IV STAT ONE Stop: 02/19/17 10:31 Last Admin: 02/19/17 09:29 Dose: 50 mls/hr Iopamidol (Isovue Multipack-370 (76%)) 100 ml IVPUSH ONETIME STA Stop: 02/16/17 13:50 Last Admin: 02/16/17 13:50 Dose: 100 ml Ketorolac Tromethamine (Toradol) 30 mg IVPUSH ONETIME ONE Stop: 02/16/17 15:13 Last Admin: 02/16/17 15:16 Dose: 30 mg Morphine Sulfate (Morphine) 4 mg IVPUSH ONETIME ONE Stop: 02/16/17 11:43 Last Admin: 02/16/17 12:03 Dose: 4 mg Morphine Sulfate (Morphine) 2 mg IVPUSH Q2H PRN PRN Reason: Pain (severe 7-10) Stop: 02/17/17 17:20 Last Admin: 02/17/17 09:04 Dose: 2 mg Morphine Sulfate (Morphine) 2 mg IVPUSH Q4H PRN PRN Reason: Pain (severe 7-10) Stop: 02/17/17 17:20 Last Admin: 02/17/17 17:03 Dose: 2 mg Morphine Sulfate (Morphine) 2 mg IVPUSH Q2H PRN PRN Reason: Pain Last Admin: 02/19/17 08:04 Dose: 2 mg Ondansetron HCl (Zofran) 4 mg IVPUSH ONETIME ONE Stop: 02/16/17 11:43 Last Admin: 02/16/17 12:03 Dose: 4 mg Oxycodone HCl (Oxycodone) 5 mg PO Q4H PRN PRN Reason: Pain Last Admin: 02/18/17 16:24 Dose: 5 mg - My Orders Last 24 Hours: My Active Orders 02/20/17 05:11 BASIC METABOLIC PANEL,BMP [CHEM] Routine CBC WITH AUTO DIFF [HEME] Routine - Free Text/Narrative Note: Concur with examination and plan as documented. Tonight patient has ambulated well and reports flatus passing.
[2017-02-19] MEDS: Ciprofloxacin in D5W 400 MG in Premix Bag 1 BAG IV SCH ×6 (10:37→23:41)
[2017-02-19] MEDS: Ketorolac 30 MG/ML SDV IVPUSH PRN (14:18)
--- NOTE | 2017-02-19 14:55 | CR ---
EXAMINATION: Abdomen HISTORY: Small bowel obstruction COMPARISON: 02/17/2017 TECHNIQUE: AP and upright views FINDINGS: Again noted are multiple dilated loops of small bowel measuring up to 5 cm. Overall the deg ree and number of dilated loops appears unchanged. Stool and gas is noted within the colon however, t o a lesser extent. No free air noted under the diaphragm. No abnormal calcifications. Postsurgical ch anges noted within the lumbar spine. An IVC filter is noted. Moderate degenerative changes noted with in the right hip. IMPRESSION: 1. Persistent moderately dilated loops of small bowel, grossly unchanged.
[2017-02-19] MEDS: Sodium Chloride 0.9% 1,000 ML IV SCH (22:46)
[2017-02-20] MEDS: Ketorolac 30 MG/ML SDV IVPUSH PRN ×3 (00:39→18:10)
[2017-02-20] MEDS: metroNIDAZOLE/Normal Saline 500 MG in Premix Bag 1 BAG IV SCH ×3 (06:08→21:31)
[2017-02-20 06:44] LABS: CHLORIDE,CL 104 mmol/L (98-110); SODIUM,NA 138 mmol/L (136-146)
[2017-02-20] MEDS: Sodium Chloride 0.9% 1,000 ML IV SCH ×2 (08:31→21:31)
[2017-02-20] MEDS: LORazepam 2 MG/ML MDV IVPUSH PRN ×2 (10:42→19:27)
[2017-02-20] MEDS ORDERED: Potassium Chloride 20 MEQ Tab.ER PO ONE ×2 (11:12→11:50)
[2017-02-20] MEDS ORDERED: Sodium Chloride 0.9% with KCl 1,000 ML IV ONE (11:12)
--- NOTE | 2017-02-20 11:15 | PCM.SURGPN ---
- General Info Date of Service: 02/20/17 Functional Status: Reports: Pain Controlled (passing flatus, more per pt; xray remained unchanged though w dilated loops of SB, wbc normal) - Review of Systems General: Reports: No Symptoms Gastrointestinal: Reports: No Symptoms - Patient Data Vitals - Most Recent: Last Vital Signs Temp 98.2 F 02/20/17 08:00 Pulse 70 02/20/17 08:00 Resp 19 02/20/17 08:00 BP 149/89 H 02/20/17 08:00 Pulse Ox 97 02/20/17 08:00 Weight - Most Recent: 213 lb 13.574 oz I&O - Last 24 Hours: Intake & Output 02/19/17 02/20/17 02/20/17 22:59 06:59 14:59 Intake Total 361 781 4367 Output Total 700 1750 Balance -503 -1550 1100 Lab Results Last 24 Hrs: Laboratory Results - last 24 hr 02/20/17 02/20/17 02/20/17 Range/Units 06:07 06:07 06:07 WBC 5.57 (4.0-11.0) K/uL RBC 4.73 (4.50-5.90) M/uL Hgb 13.3 (13.0-17.0) g/dL Hct 39.2 (38.0-50.0) % MCV 82.9 (80.0-98.0) fL MCH 28.1 (27.0-32.0) pg MCHC 33.9 (31.0-37.0) g/dL RDW Std Deviation 38.2 (28.0-62.0) fl RDW Coeff of Jarret 13 (11.0-15.0) % Plt Count 195 (150-400) K/uL MPV 9.30 (7.40-12.00) fL Neut % (Auto) 72.8 (48.0-80.0) % Lymph % (Auto) 15.1 L (16.0-40.0) % [place] % (Auto) 9.7 (0.0-15.0) % Eos % (Auto) 2.0 (0.0-7.0) % Baso % (Auto) 0.4 (0.0-1.5) % Neut # (Auto) 4.1 (1.4-5.7) K/uL Lymph # (Auto) 0.8 (0.6-2.4) K/uL [place] # (Auto) 0.5 (0.0-0.8) K/uL Eos # (Auto) 0.1 (0.0-0.7) K/uL Baso # (Auto) 0.0 (0.0-0.1) K/uL Nucleated RBC % 0.0 /100WBC Nucleated RBCs # 0 K/uL Sodium 138 (136-146) mmol/L Potassium 3.1 L (3.5-5.1) mmol/L Chloride 104 (98-110) mmol/L Carbon Dioxide 22 (21-31) mmol/L BUN 6 (6.0-23.0) mg/dL Creatinine 0.6 (0.6-1.5) mg/dL Est Cr Clr Drug Dosing 184.65 mL/min Estimated GFR (MDRD) > 60.0 ml/min Glucose 84 (60-110) mg/dL Calcium 8.0 L (8.8-10.8) mg/dL Magnesium 1.8 (1.5-2.3) mEq/L Med Orders - Current: Current Medications Sodium Chloride (Normal Saline) 1,000 mls @ 125 mls/hr IV ASDIRECTED [facility] Last Admin: 02/20/17 08:31 Dose: 125 mls/hr Metronidazole 500 mg/ Premix 100 mls @ 100 mls/hr IV Q8H [facility] Last Admin: 02/20/17 06:08 Dose: 100 mls/hr Ciprofloxacin/Dextrose 400 mg/ (Premix) 200 mls @ 200 mls/hr IV Q12H [facility] Last Admin: 02/19/17 23:41 Dose: 200 mls/hr Ketorolac Tromethamine (Toradol) 30 mg IVPUSH Q8H PRN PRN Reason: Pain Stop: 02/24/17 12:34 Last Admin: 02/20/17 08:39 Dose: 30 mg Lorazepam (Ativan) 1 mg IVPUSH Q6H PRN PRN Reason: Anxiety Last Admin: 02/20/17 10:42 Dose: 1 mg Ondansetron HCl (Zofran) 4 mg IVPUSH Q4H PRN PRN Reason: Nausea Last Admin: 02/19/17 08:25 Dose: 4 mg Sodium Chloride (Saline Flush) 10 ml FLUSH ASDIRECTED PRN PRN Reason: Keep Vein Open Last Admin: 02/16/17 12:04 Dose: 10 ml Sodium Chloride (Saline Flush) 2.5 ml FLUSH ASDIRECTED PRN PRN Reason: Keep Vein Open Last Admin: 02/16/17 12:04 Dose: 2.5 ml Discontinued Medications Dicyclomine HCl (Bentyl) 20 mg PO ONETIME ONE Stop: 02/16/17 11:43 Last Admin: 02/16/17 12:04 Dose: 20 mg Sodium Chloride (Normal Saline) 1,000 mls @ 999 mls/hr IV STAT ONE Stop: 02/16/17 12:42 Last Admin: 02/16/17 12:05 Dose: 999 mls/hr Sodium Chloride (Normal Saline) 1,000 mls @ 999 mls/hr IV STAT ONE Stop: 02/16/17 14:03 Last Admin: 02/16/17 13:09 Dose: 999 mls/hr Sodium Chloride (Normal Saline) 1,000 mls @ 999 mls/hr IV .BOLUS ONE Stop: 02/16/17 14:04 Last Admin: 02/16/17 16:22 Dose: Not Given Potassium Chloride/Dextrose/Sod Cl (D5 Ns With 20 Meq Kcl) 1,000 mls @ 150 mls/ hr IV ASDIRECTED [facility] Ciprofloxacin/Dextrose 400 mg/ (Premix) 200 mls @ 200 mls/hr IV Q12H [facility] Last Admin: 02/19/17 10:37 Dose: Not Given Potassium Chloride/Sodium Chloride (Normal Saline With 40 Meq Kcl) 1,000 mls @ 125 mls/hr IV ASDIRECTED [facility] Stop: 02/19/17 16:14 Last Admin: 02/19/17 09:19 Dose: 125 mls/hr Magnesium Sulfate 4 gm/ Premix 100 mls @ 50 mls/hr IV STAT ONE Stop: 02/19/17 10:31 Last Admin: 02/19/17 09:29 Dose: 50 mls/hr Iopamidol (Isovue Multipack-370 (76%)) 100 ml IVPUSH ONETIME STA Stop: 02/16/17 13:50 Last Admin: 02/16/17 13:50 Dose: 100 ml Ketorolac Tromethamine (Toradol) 30 mg IVPUSH ONETIME ONE Stop: 02/16/17 15:13 Last Admin: 02/16/17 15:16 Dose: 30 mg Morphine Sulfate (Morphine) 4 mg IVPUSH ONETIME ONE Stop: 02/16/17 11:43 Last Admin: 02/16/17 12:03 Dose: 4 mg Morphine Sulfate (Morphine) 2 mg IVPUSH Q2H PRN PRN Reason: Pain (severe 7-10) Stop: 02/17/17 17:20 Last Admin: 02/17/17 09:04 Dose: 2 mg Morphine Sulfate (Morphine) 2 mg IVPUSH Q4H PRN PRN Reason: Pain (severe 7-10) Stop: 02/17/17 17:20 Last Admin: 02/17/17 17:03 Dose: 2 mg Morphine Sulfate (Morphine) 2 mg IVPUSH Q2H PRN PRN Reason: Pain Last Admin: 02/19/17 08:04 Dose: 2 mg Ondansetron HCl (Zofran) 4 mg IVPUSH ONETIME ONE Stop: 02/16/17 11:43 Last Admin: 02/16/17 12:03 Dose: 4 mg Oxycodone HCl (Oxycodone) 5 mg PO Q4H PRN PRN Reason: Pain Last Admin: 02/18/17 16:24 Dose: 5 mg - Exam General: Alert, Oriented GI/Abdominal Exam: Normal Bowel Sounds (mildly distended), Soft - Problem List Review Problem List Initiated/Reviewed/Updated: Yes - My Orders Last 24 Hours: Active Orders 24 hr Category Date Time Status Communication Order [RC] PER UNIT ROUTINE Care 02/19/17 12:34 Active Clear Liquid Diet [DIET] Diet 02/20/17 Lunch Active Ciprofloxacin in D5W [Cipro in D5W 400 MG/200 ML] 400 Med 02/19/17 12:00 Active mg Premix Bag 1 bag IV Q12H Ketorolac [Toradol] Med 02/19/17 12:33 Active 30 mg IVPUSH Q8H PRN Medication Orders Sodium Chloride (Normal Saline) 1,000 mls @ 125 mls/hr IV ASDIRECTED [facility] Last Admin: 02/20/17 08:31 Dose: 125 mls/hr Infusion: 02/20/17 06:46 Dose: 125 mls/hr Admin: 02/19/17 22:46 Dose: 125 mls/hr Infusion: 02/19/17 07:07 Dose: 125 mls/hr Admin: 02/18/17 23:07 Dose: 125 mls/hr Infusion: 02/18/17 21:38 Dose: 125 mls/hr Admin: 02/18/17 13:38 Dose: 125 mls/hr Infusion: 02/18/17 12:38 Dose: 125 mls/hr Admin: 02/18/17 04:38 Dose: 125 mls/hr Infusion: 02/18/17 02:34 Dose: 125 mls/hr Admin: 02/17/17 18:34 Dose: 125 mls/hr Infusion: 02/17/17 17:06 Dose: 125 mls/hr Admin: 02/17/17 09:06 Dose: 125 mls/hr Infusion: 02/17/17 06:43 Dose: 125 mls/hr Admin: 02/16/17 22:43 Dose: 125 mls/hr Infusion: 02/16/17 22:43 Dose: 125 mls/hr Admin: 02/16/17 16:00 Dose: 125 mls/hr Metronidazole 500 mg/ Premix 100 mls @ 100 mls/hr IV Q8H [facility] Last Admin: 02/20/17 06:08 Dose: 100 mls/hr Infusion: 02/19/17 22:42 Dose: 100 mls/hr Admin: 02/19/17 21:42 Dose: 100 mls/hr Infusion: 02/19/17 14:43 Dose: 100 mls/hr Admin: 02/19/17 13:43 Dose: 100 mls/hr Infusion: 02/19/17 06:46 Dose: 100 mls/hr Admin: 02/19/17 05:46 Dose: 100 mls/hr Infusion: 02/19/17 00:46 Dose: 100 mls/hr Admin: 02/18/17 23:46 Dose: 100 mls/hr Infusion: 02/18/17 14:37 Dose: 100 mls/hr Admin: 02/18/17 13:37 Dose: 100 mls/hr Infusion: 02/18/17 07:37 Dose: 100 mls/hr Admin: 02/18/17 06:37 Dose: 100 mls/hr Infusion: 02/18/17 00:14 Dose: 100 mls/hr Admin: 02/17/17 23:14 Dose: 100 mls/hr Infusion: 02/17/17 14:35 Dose: 100 mls/hr Admin: 02/17/17 13:35 Dose: 100 mls/hr Infusion: 02/17/17 07:22 Dose: 100 mls/hr Admin: 02/17/17 06:22 Dose: 100 mls/hr Infusion: 02/17/17 00:55 Dose: 100 mls/hr Admin: 02/16/17 23:55 Dose: 100 mls/hr Ciprofloxacin/Dextrose 400 mg/ (Premix) 200 mls @ 200 mls/hr IV Q12H [facility] Last Admin: 02/19/17 23:41 Dose: 200 mls/hr Infusion: 02/19/17 13:22 Dose: 200 mls/hr Admin: 02/19/17 12:22 Dose: 200 mls/hr Ketorolac Tromethamine (Toradol) 30 mg IVPUSH Q8H PRN PRN Reason: Pain Stop: 02/24/17 12:34 Last Admin: 02/20/17 08:39 Dose: 30 mg Admin: 02/20/17 00:39 Dose: 30 mg Admin: 02/19/17 14:18 Dose: 30 mg Lorazepam (Ativan) 1 mg IVPUSH Q6H PRN PRN Reason: Anxiety Last Admin: 02/20/17 10:42 Dose: 1 mg Admin: 02/18/17 19:53 Dose: 1 mg Admin: 02/18/17 08:59 Dose: 1 mg Admin: 02/17/17 23:15 Dose: 1 mg Admin: 02/17/17 15:36 Dose: 1 mg Ondansetron HCl (Zofran) 4 mg IVPUSH Q4H PRN PRN Reason: Nausea Last Admin: 02/19/17 08:25 Dose: 4 mg Admin: 02/18/17 03:21 Dose: 4 mg Admin: 02/17/17 21:37 Dose: 4 mg Admin: 02/17/17 15:35 Dose: 4 mg Sodium Chloride (Saline Flush) 10 ml FLUSH ASDIRECTED PRN PRN Reason: Keep Vein Open Last Admin: 02/16/17 12:04 Dose: 10 ml Sodium Chloride (Saline Flush) 2.5 ml FLUSH ASDIRECTED PRN PRN Reason: Keep Vein Open Last Admin: 02/16/17 12:04 Dose: 2.5 ml - Assessment Assessment (Free Text/Narrative):: resolving ileus, resolving, not resolved; continue clear liquid, avoid all narcotics; keep K above 4 to avoid chemical ileus; pt asked a lot of questions, all answered; possible ileus vs pSBO, pt continue to pass gas, and wbc is normal , and abd exam, no pain; putting in an ngt may help to speed things up, pt refused. - Plan Plan (Free Text/Narrative):: resolving ileus, resolving, not resolved; continue clear liquid, avoid all narcotics; keep K above 4 to avoid chemical ileus; pt asked a lot of questions, all answered; possible ileus vs pSBO, pt continue to pass gas, and wbc is normal , and abd exam, no pain; putting in an ngt may help to speed things up, pt refused.
[2017-02-20] MEDS: Ciprofloxacin in D5W 400 MG in Premix Bag 1 BAG IV SCH ×4 (11:21→23:11)
--- NOTE | 2017-02-20 11:53 | PCM.PN ---
<Baluch,Jan - Last Filed: 02/20/17 11:38> - General Info Date of Service: 02/20/17 Admission Dx/Problem (Free Text): Admission Diagnosis/Problem Admission Diagnosis/Problem Intestinal obstruction Subjective Update: Patient states his nausea and vomiting have resolved since stopping morphine. Abdominal pain is improving. He is passing gas. Last episode of diarrhea was yesterday morning. No fever, chills or night sweats. He is still NPO. Functional Status: Reports: Pain Controlled, Ambulating, Urinating. Denies: Tolerating Diet - Review of Systems General: Reports: No Symptoms HEENT: Reports: No Symptoms Pulmonary: Reports: No Symptoms Cardiovascular: Reports: No Symptoms Gastrointestinal: Reports: Abdominal Pain (abdominal pain improving ) Genitourinary: Reports: No Symptoms Musculoskeletal: Reports: No Symptoms Skin: Reports: No Symptoms Neurological: Reports: No Symptoms Psychiatric: Reports: No Symptoms - Patient Data Vitals - Most Recent: Last Vital Signs Temp 36.8 C 02/20/17 08:00 Pulse 70 02/20/17 08:00 Resp 19 02/20/17 08:00 BP 149/89 H 02/20/17 08:00 Pulse Ox 97 02/20/17 08:00 Weight - Most Recent: 97 kg I&O - Last 24 Hours: Intake & Output 02/19/17 02/20/17 02/20/17 22:59 06:59 14:59 Intake Total 989 740 4164 Output Total 700 1750 Balance -503 -1550 1100 Lab Results Last 24 Hours: Laboratory Results - last 24 hr 02/20/17 02/20/17 02/20/17 Range/Units 06:07 06:07 06:07 WBC 5.57 (4.0-11.0) K/uL RBC 4.73 (4.50-5.90) M/uL Hgb 13.3 (13.0-17.0) g/dL Hct 39.2 (38.0-50.0) % MCV 82.9 (80.0-98.0) fL MCH 28.1 (27.0-32.0) pg MCHC 33.9 (31.0-37.0) g/dL RDW Std Deviation 38.2 (28.0-62.0) fl RDW Coeff of Jarret 13 (11.0-15.0) % Plt Count 195 (150-400) K/uL MPV 9.30 (7.40-12.00) fL Neut % (Auto) 72.8 (48.0-80.0) % Lymph % (Auto) 15.1 L (16.0-40.0) % [place] % (Auto) 9.7 (0.0-15.0) % Eos % (Auto) 2.0 (0.0-7.0) % Baso % (Auto) 0.4 (0.0-1.5) % Neut # (Auto) 4.1 (1.4-5.7) K/uL Lymph # (Auto) 0.8 (0.6-2.4) K/uL [place] # (Auto) 0.5 (0.0-0.8) K/uL Eos # (Auto) 0.1 (0.0-0.7) K/uL Baso # (Auto) 0.0 (0.0-0.1) K/uL Nucleated RBC % 0.0 /100WBC Nucleated RBCs # 0 K/uL Sodium 138 (136-146) mmol/L Potassium 3.1 L (3.5-5.1) mmol/L Chloride 104 (98-110) mmol/L Carbon Dioxide 22 (21-31) mmol/L BUN 6 (6.0-23.0) mg/dL Creatinine 0.6 (0.6-1.5) mg/dL Est Cr Clr Drug Dosing 184.65 mL/min Estimated GFR (MDRD) > 60.0 ml/min Glucose 84 (60-110) mg/dL Calcium 8.0 L (8.8-10.8) mg/dL Magnesium 1.8 (1.5-2.3) mEq/L Med Orders - Current: Current Medications Sodium Chloride (Normal Saline) 1,000 mls @ 125 mls/hr IV ASDIRECTED [facility] Last Admin: 02/20/17 08:31 Dose: 125 mls/hr Metronidazole 500 mg/ Premix 100 mls @ 100 mls/hr IV Q8H [facility] Last Admin: 02/20/17 06:08 Dose: 100 mls/hr Ciprofloxacin/Dextrose 400 mg/ (Premix) 200 mls @ 200 mls/hr IV Q12H [facility] Last Admin: 02/20/17 11:21 Dose: 200 mls/hr Potassium Chloride/Sodium Chloride (Normal Saline With 40 Meq Kcl) 1,000 mls @ 125 mls/hr IV ONETIME ONE Stop: 02/20/17 19:11 Ketorolac Tromethamine (Toradol) 30 mg IVPUSH Q8H PRN PRN Reason: Pain Stop: 02/24/17 12:34 Last Admin: 02/20/17 08:39 Dose: 30 mg Lorazepam (Ativan) 1 mg IVPUSH Q6H PRN PRN Reason: Anxiety Last Admin: 02/20/17 10:42 Dose: 1 mg Ondansetron HCl (Zofran) 4 mg IVPUSH Q4H PRN PRN Reason: Nausea Last Admin: 02/19/17 08:25 Dose: 4 mg Sodium Chloride (Saline Flush) 10 ml FLUSH ASDIRECTED PRN PRN Reason: Keep Vein Open Last Admin: 02/16/17 12:04 Dose: 10 ml Sodium Chloride (Saline Flush) 2.5 ml FLUSH ASDIRECTED PRN PRN Reason: Keep Vein Open Last Admin: 02/16/17 12:04 Dose: 2.5 ml Discontinued Medications Dicyclomine HCl (Bentyl) 20 mg PO ONETIME ONE Stop: 02/16/17 11:43 Last Admin: 02/16/17 12:04 Dose: 20 mg Sodium Chloride (Normal Saline) 1,000 mls @ 999 mls/hr IV STAT ONE Stop: 02/16/17 12:42 Last Admin: 02/16/17 12:05 Dose: 999 mls/hr Sodium Chloride (Normal Saline) 1,000 mls @ 999 mls/hr IV STAT ONE Stop: 02/16/17 14:03 Last Admin: 02/16/17 13:09 Dose: 999 mls/hr Sodium Chloride (Normal Saline) 1,000 mls @ 999 mls/hr IV .BOLUS ONE Stop: 02/16/17 14:04 Last Admin: 02/16/17 16:22 Dose: Not Given Potassium Chloride/Dextrose/Sod Cl (D5 Ns With 20 Meq Kcl) 1,000 mls @ 150 mls/ hr IV ASDIRECTED [facility] Ciprofloxacin/Dextrose 400 mg/ (Premix) 200 mls @ 200 mls/hr IV Q12H [facility] Last Admin: 02/19/17 10:37 Dose: Not Given Potassium Chloride/Sodium Chloride (Normal Saline With 40 Meq Kcl) 1,000 mls @ 125 mls/hr IV ASDIRECTED [facility] Stop: 02/19/17 16:14 Last Admin: 02/19/17 09:19 Dose: 125 mls/hr Magnesium Sulfate 4 gm/ Premix 100 mls @ 50 mls/hr IV STAT ONE Stop: 02/19/17 10:31 Last Admin: 02/19/17 09:29 Dose: 50 mls/hr Iopamidol (Isovue Multipack-370 (76%)) 100 ml IVPUSH ONETIME STA Stop: 02/16/17 13:50 Last Admin: 02/16/17 13:50 Dose: 100 ml Ketorolac Tromethamine (Toradol) 30 mg IVPUSH ONETIME ONE Stop: 02/16/17 15:13 Last Admin: 02/16/17 15:16 Dose: 30 mg Morphine Sulfate (Morphine) 4 mg IVPUSH ONETIME ONE Stop: 02/16/17 11:43 Last Admin: 02/16/17 12:03 Dose: 4 mg Morphine Sulfate (Morphine) 2 mg IVPUSH Q2H PRN PRN Reason: Pain (severe 7-10) Stop: 02/17/17 17:20 Last Admin: 02/17/17 09:04 Dose: 2 mg Morphine Sulfate (Morphine) 2 mg IVPUSH Q4H PRN PRN Reason: Pain (severe 7-10) Stop: 02/17/17 17:20 Last Admin: 02/17/17 17:03 Dose: 2 mg Morphine Sulfate (Morphine) 2 mg IVPUSH Q2H PRN PRN Reason: Pain Last Admin: 02/19/17 08:04 Dose: 2 mg Ondansetron HCl (Zofran) 4 mg IVPUSH ONETIME ONE Stop: 02/16/17 11:43 Last Admin: 02/16/17 12:03 Dose: 4 mg Oxycodone HCl (Oxycodone) 5 mg PO Q4H PRN PRN Reason: Pain Last Admin: 02/18/17 16:24 Dose: 5 mg Potassium Chloride (Klor-Con M20) 20 meq PO ONETIME ONE Stop: 02/20/17 11:13 - Exam General: Alert, Oriented, Cooperative, No Acute Distress HEENT: Pupils Equal, Pupils Reactive Neck: Supple Lungs: Clear to Auscultation, Normal Respiratory Effort Cardiovascular: Regular Rate, Regular Rhythm GI/Abdominal Exam: Normal Bowel Sounds, Soft, Non-Tender, Distended Skin: Warm, Dry, Intact - Problem List Review Problem List Initiated/Reviewed/Updated: Yes - My Orders Last 24 Hours: My Active Orders 02/20/17 11:12 Sodium Chloride 0.9% with KCl [Normal Saline with 40 mEq KCl] 1,000 ml IV ONETIME 02/20/17 Lunch Clear Liquid Diet [DIET] - Plan Plan:: 41 yo male with history of Spinal cord Injury admitted for Travellers Diarrhea complicated by Partial Bowel Obstruction. Patient passing gas and Nausea/ Vomiting/Diarrhea improving but abdominal distension still present. Dr. Yan, General Surgery has been consulted and is on case. 1. Partial Bowel Obstruction: possibly related to patients history of spinal cord injury and/or chemically induced. Clear liquid diet. Target K over 4. orders as per Dr. Yan. Appreciate the rec's. 2. Travellers Diarrhea: on IV Metro and Cipro. Negative Campylobacter/Shiga Toxin. Awaiting Stool Culture. 3. Hypokalemia: K 3.1 this morning. Administer 40 meq IV & 40 meq PO. continue to monitor 4. Hypomagnasemia, corrected: Mg 1.8 today. continue to monitor 5. DVT Prophylaxis: SCD's. consider starting Lovenox. <Nael Almonte - Last Filed: 02/20/17 14:07> - Patient Data Vitals - Most Recent: Last Vital Signs Temp 37.1 C 02/20/17 12:00 Pulse 78 02/20/17 12:00 Resp 19 02/20/17 12:00 BP 140/88 02/20/17 12:00 Pulse Ox 97 02/20/17 12:00 I&O - Last 24 Hours: Intake & Output 02/19/17 02/20/17 02/20/17 22:59 06:59 14:59 Intake Total 693 076 2696 Output Total 700 1750 Balance -503 -1550 1656 Lab Results Last 24 Hours: Laboratory Results - last 24 hr 02/20/17 02/20/17 02/20/17 Range/Units 06:07 06:07 06:07 WBC 5.57 (4.0-11.0) K/uL RBC 4.73 (4.50-5.90) M/uL Hgb 13.3 (13.0-17.0) g/dL Hct 39.2 (38.0-50.0) % MCV 82.9 (80.0-98.0) fL MCH 28.1 (27.0-32.0) pg MCHC 33.9 (31.0-37.0) g/dL RDW Std Deviation 38.2 (28.0-62.0) fl RDW Coeff of Jarret 13 (11.0-15.0) % Plt Count 195 (150-400) K/uL MPV 9.30 (7.40-12.00) fL Neut % (Auto) 72.8 (48.0-80.0) % Lymph % (Auto) 15.1 L (16.0-40.0) % [place] % (Auto) 9.7 (0.0-15.0) % Eos % (Auto) 2.0 (0.0-7.0) % Baso % (Auto) 0.4 (0.0-1.5) % Neut # (Auto) 4.1 (1.4-5.7) K/uL Lymph # (Auto) 0.8 (0.6-2.4) K/uL [place] # (Auto) 0.5 (0.0-0.8) K/uL Eos # (Auto) 0.1 (0.0-0.7) K/uL Baso # (Auto) 0.0 (0.0-0.1) K/uL Nucleated RBC % 0.0 /100WBC Nucleated RBCs # 0 K/uL Sodium 138 (136-146) mmol/L Potassium 3.1 L (3.5-5.1) mmol/L Chloride 104 (98-110) mmol/L Carbon Dioxide 22 (21-31) mmol/L BUN 6 (6.0-23.0) mg/dL Creatinine 0.6 (0.6-1.5) mg/dL Est Cr Clr Drug Dosing 184.65 mL/min Estimated GFR (MDRD) > 60.0 ml/min Glucose 84 (60-110) mg/dL Calcium 8.0 L (8.8-10.8) mg/dL Magnesium 1.8 (1.5-2.3) mEq/L Med Orders - Current: Current Medications Sodium Chloride (Normal Saline) 1,000 mls @ 125 mls/hr IV ASDIRECTED [facility] Last Admin: 02/20/17 08:31 Dose: 125 mls/hr Metronidazole 500 mg/ Premix 100 mls @ 100 mls/hr IV Q8H [facility] Last Admin: 02/20/17 13:43 Dose: 100 mls/hr Ciprofloxacin/Dextrose 400 mg/ (Premix) 200 mls @ 200 mls/hr IV Q12H [facility] Last Admin: 02/20/17 11:21 Dose: 200 mls/hr Potassium Chloride/Sodium Chloride (Normal Saline With 40 Meq Kcl) 1,000 mls @ 125 mls/hr IV ONETIME ONE Stop: 02/20/17 19:11 Last Admin: 02/20/17 11:40 Dose: 125 mls/hr Ketorolac Tromethamine (Toradol) 30 mg IVPUSH Q8H PRN PRN Reason: Pain Stop: 02/24/17 12:34 Last Admin: 02/20/17 08:39 Dose: 30 mg Lorazepam (Ativan) 1 mg IVPUSH Q6H PRN PRN Reason: Anxiety Last Admin: 02/20/17 10:42 Dose: 1 mg Ondansetron HCl (Zofran) 4 mg IVPUSH Q4H PRN PRN Reason: Nausea Last Admin: 02/19/17 08:25 Dose: 4 mg Sodium Chloride (Saline Flush) 10 ml FLUSH ASDIRECTED PRN PRN Reason: Keep Vein Open Last Admin: 02/16/17 12:04 Dose: 10 ml Sodium Chloride (Saline Flush) 2.5 ml FLUSH ASDIRECTED PRN PRN Reason: Keep Vein Open Last Admin: 02/16/17 12:04 Dose: 2.5 ml Discontinued Medications Dicyclomine HCl (Bentyl) 20 mg PO ONETIME ONE Stop: 02/16/17 11:43 Last Admin: 02/16/17 12:04 Dose: 20 mg Sodium Chloride (Normal Saline) 1,000 mls @ 999 mls/hr IV STAT ONE Stop: 02/16/17 12:42 Last Admin: 02/16/17 12:05 Dose: 999 mls/hr Sodium Chloride (Normal Saline) 1,000 mls @ 999 mls/hr IV STAT ONE Stop: 02/16/17 14:03 Last Admin: 02/16/17 13:09 Dose: 999 mls/hr Sodium Chloride (Normal Saline) 1,000 mls @ 999 mls/hr IV .BOLUS ONE Stop: 02/16/17 14:04 Last Admin: 02/16/17 16:22 Dose: Not Given Potassium Chloride/Dextrose/Sod Cl (D5 Ns With 20 Meq Kcl) 1,000 mls @ 150 mls/ hr IV ASDIRECTED [facility] Ciprofloxacin/Dextrose 400 mg/ (Premix) 200 mls @ 200 mls/hr IV Q12H [facility] Last Admin: 02/19/17 10:37 Dose: Not Given Potassium Chloride/Sodium Chloride (Normal Saline With 40 Meq Kcl) 1,000 mls @ 125 mls/hr IV ASDIRECTED [facility] Stop: 02/19/17 16:14 Last Admin: 02/19/17 09:19 Dose: 125 mls/hr Magnesium Sulfate 4 gm/ Premix 100 mls @ 50 mls/hr IV STAT ONE Stop: 02/19/17 10:31 Last Admin: 02/19/17 09:29 Dose: 50 mls/hr Iopamidol (Isovue Multipack-370 (76%)) 100 ml IVPUSH ONETIME STA Stop: 02/16/17 13:50 Last Admin: 02/16/17 13:50 Dose: 100 ml Ketorolac Tromethamine (Toradol) 30 mg IVPUSH ONETIME ONE Stop: 02/16/17 15:13 Last Admin: 02/16/17 15:16 Dose: 30 mg Morphine Sulfate (Morphine) 4 mg IVPUSH ONETIME ONE Stop: 02/16/17 11:43 Last Admin: 02/16/17 12:03 Dose: 4 mg Morphine Sulfate (Morphine) 2 mg IVPUSH Q2H PRN PRN Reason: Pain (severe 7-10) Stop: 02/17/17 17:20 Last Admin: 02/17/17 09:04 Dose: 2 mg Morphine Sulfate (Morphine) 2 mg IVPUSH Q4H PRN PRN Reason: Pain (severe 7-10) Stop: 02/17/17 17:20 Last Admin: 02/17/17 17:03 Dose: 2 mg Morphine Sulfate (Morphine) 2 mg IVPUSH Q2H PRN PRN Reason: Pain Last Admin: 02/19/17 08:04 Dose: 2 mg Ondansetron HCl (Zofran) 4 mg IVPUSH ONETIME ONE Stop: 02/16/17 11:43 Last Admin: 02/16/17 12:03 Dose: 4 mg Oxycodone HCl (Oxycodone) 5 mg PO Q4H PRN PRN Reason: Pain Last Admin: 02/18/17 16:24 Dose: 5 mg Potassium Chloride (Klor-Con M20) 20 meq PO ONETIME ONE Stop: 02/20/17 11:13 Last Admin: 02/20/17 11:38 Dose: 20 meq Potassium Chloride (Klor-Con M20) 20 meq PO ONETIME ONE Stop: 02/20/17 11:51 Last Admin: 02/20/17 12:03 Dose: 20 meq - Free Text/Narrative Note: I have seen this patient today. Dr. Yan has discussed his condition with Dr. Covarrubias and myself. The use of the NG tube yesterday did not work well as the patient could not tolerate it. His indicated that 12 years ago, he had an intestinal ileus for 10 days and she wants to know if his intestinal function is different from other people due to the spinal injury he had in the remote past. The patient has taken some clear fluids today without vomiting so far. I concur with Dr. Covarrubias's note and plan.
[2017-02-20] MEDS ORDERED: traZODone 50 MG Tab PO ONE (20:59)
[2017-02-21] MEDS: Ketorolac 30 MG/ML SDV IVPUSH PRN (05:40)
[2017-02-21] MEDS: metroNIDAZOLE/Normal Saline 500 MG in Premix Bag 1 BAG IV SCH (05:42)
[2017-02-21 06:37] LABS: CHLORIDE,CL 107 mmol/L (98-110); SODIUM,NA 139 mmol/L (136-146)
[2017-02-21] MEDS ORDERED: NS + KCl 20mEq/L 1,000 ML IV SCH (08:45)
--- NOTE | 2017-02-21 08:49 | PCM.PN ---
<Marci,Jan - Last Filed: 02/21/17 08:59> - General Info Date of Service: 02/21/17 Admission Dx/Problem (Free Text): Admission Diagnosis/Problem Admission Diagnosis/Problem Intestinal obstruction Subjective Update: Patient feeling better today. Had some abdominal pain yesterday evening but that has resolved. Had 1 episode of watery diarrhea last night. No nausea or vomiting. States abdomen was more distended yesterday evening but has decreased today. He is still passing gas. Still on clear liquid diet which he is tolerating. Functional Status: Reports: Pain Controlled, Tolerating Diet, Ambulating, Urinating - Review of Systems General: Reports: No Symptoms HEENT: Reports: No Symptoms Pulmonary: Reports: No Symptoms Cardiovascular: Reports: No Symptoms Gastrointestinal: Reports: Abdominal Pain (mild), Diarrhea (single episode ) Genitourinary: Reports: No Symptoms Musculoskeletal: Reports: No Symptoms Skin: Reports: No Symptoms Neurological: Reports: No Symptoms Psychiatric: Reports: No Symptoms - Patient Data Vitals - Most Recent: Last Vital Signs Temp 36.9 C 02/21/17 04:00 Pulse 70 02/21/17 04:00 Resp 18 02/21/17 04:00 BP 117/64 02/21/17 04:00 Pulse Ox 95 02/21/17 04:00 Weight - Most Recent: 97 kg I&O - Last 24 Hours: Intake & Output 02/20/17 02/21/17 02/21/17 22:59 06:59 14:59 Intake Total 650 100 Output Total 1900 1250 Balance -1250 -1150 Lab Results Last 24 Hours: Laboratory Results - last 24 hr 02/21/17 02/21/17 Range/Units 05:58 05:58 WBC 7.32 (4.0-11.0) K/uL RBC 4.95 (4.50-5.90) M/uL Hgb 14.1 (13.0-17.0) g/dL Hct 40.8 (38.0-50.0) % MCV 82.4 (80.0-98.0) fL MCH 28.5 (27.0-32.0) pg MCHC 34.6 (31.0-37.0) g/dL RDW Std Deviation 38.6 (28.0-62.0) fl RDW Coeff of Jarret 13 (11.0-15.0) % Plt Count 216 (150-400) K/uL MPV 9.40 (7.40-12.00) fL Add Manual Diff YES Neutrophils % (Manual) 73 (48.0-80.0) % Band Neutrophils % 5 % Lymphocytes % (Manual) 15 L (16.0-40.0) % Monocytes % (Manual) 6 (0.0-15.0) % Eosinophils % (Manual) 1 (0.0-7.0) % Nucleated RBC % 0.0 /100WBC Absolute Seg Neuts 5.3 (1.4-5.7) Band Neutrophils # 0.4 Lymphocytes # (Manual) 1.1 (0.6-2.4) Monocytes # (Manual) 0.4 (0.0-0.8) Eosinophils # (Manual) 0.1 (0.0-0.7) Nucleated RBCs # 0 K/uL Sodium 139 (136-146) mmol/L Potassium 3.4 L (3.5-5.1) mmol/L Chloride 107 (98-110) mmol/L Carbon Dioxide 19 L (21-31) mmol/L BUN 6 (6.0-23.0) mg/dL Creatinine 0.6 (0.6-1.5) mg/dL Est Cr Clr Drug Dosing 184.65 mL/min Estimated GFR (MDRD) > 60.0 ml/min Glucose 88 (60-110) mg/dL Calcium 8.5 L (8.8-10.8) mg/dL Total Bilirubin 0.6 (0.1-1.5) mg/dL AST 22 (5-40) IU/L ALT 28 (8-54) IU/L Alkaline Phosphatase 51 (40-150) Total Protein 6.2 (6.0-8.0) g/dL Albumin 3.4 L (3.5-5.0) g/dL Globulin 2.8 (2.0-3.5) g/dL Albumin/Globulin Ratio 1.2 L (1.3-2.8) Med Orders - Current: Current Medications Metronidazole 500 mg/ Premix 100 mls @ 100 mls/hr IV Q8H [facility] Last Admin: 02/21/17 05:42 Dose: 100 mls/hr Ciprofloxacin/Dextrose 400 mg/ (Premix) 200 mls @ 200 mls/hr IV Q12H [facility] Last Admin: 02/20/17 23:11 Dose: 200 mls/hr Ketorolac Tromethamine (Toradol) 30 mg IVPUSH Q8H PRN PRN Reason: Pain Stop: 02/24/17 12:34 Last Admin: 02/21/17 05:40 Dose: 30 mg Lorazepam (Ativan) 1 mg IVPUSH Q6H PRN PRN Reason: Anxiety Last Admin: 02/20/17 19:27 Dose: 1 mg Ondansetron HCl (Zofran) 4 mg IVPUSH Q4H PRN PRN Reason: Nausea Last Admin: 02/19/17 08:25 Dose: 4 mg Sodium Chloride (Saline Flush) 10 ml FLUSH ASDIRECTED PRN PRN Reason: Keep Vein Open Last Admin: 02/16/17 12:04 Dose: 10 ml Sodium Chloride (Saline Flush) 2.5 ml FLUSH ASDIRECTED PRN PRN Reason: Keep Vein Open Last Admin: 02/16/17 12:04 Dose: 2.5 ml Discontinued Medications Dicyclomine HCl (Bentyl) 20 mg PO ONETIME ONE Stop: 02/16/17 11:43 Last Admin: 02/16/17 12:04 Dose: 20 mg Sodium Chloride (Normal Saline) 1,000 mls @ 999 mls/hr IV STAT ONE Stop: 02/16/17 12:42 Last Admin: 02/16/17 12:05 Dose: 999 mls/hr Sodium Chloride (Normal Saline) 1,000 mls @ 999 mls/hr IV STAT ONE Stop: 02/16/17 14:03 Last Admin: 02/16/17 13:09 Dose: 999 mls/hr Sodium Chloride (Normal Saline) 1,000 mls @ 999 mls/hr IV .BOLUS ONE Stop: 02/16/17 14:04 Last Admin: 02/16/17 16:22 Dose: Not Given Potassium Chloride/Dextrose/Sod Cl (D5 Ns With 20 Meq Kcl) 1,000 mls @ 150 mls/ hr IV ASDIRECTED LISA Sodium Chloride (Normal Saline) 1,000 mls @ 125 mls/hr IV ASDIRECTED LISA Last Admin: 02/20/17 21:31 Dose: 125 mls/hr Ciprofloxacin/Dextrose 400 mg/ (Premix) 200 mls @ 200 mls/hr IV Q12H [facility] Last Admin: 02/19/17 10:37 Dose: Not Given Potassium Chloride/Sodium Chloride (Normal Saline With 40 Meq Kcl) 1,000 mls @ 125 mls/hr IV ASDIRECTED [facility] Stop: 02/19/17 16:14 Last Admin: 02/19/17 09:19 Dose: 125 mls/hr Magnesium Sulfate 4 gm/ Premix 100 mls @ 50 mls/hr IV STAT ONE Stop: 02/19/17 10:31 Last Admin: 02/19/17 09:29 Dose: 50 mls/hr Potassium Chloride/Sodium Chloride (Normal Saline With 40 Meq Kcl) 1,000 mls @ 125 mls/hr IV ONETIME ONE Stop: 02/20/17 19:11 Last Admin: 02/20/17 11:40 Dose: 125 mls/hr Iopamidol (Isovue Multipack-370 (76%)) 100 ml IVPUSH ONETIME STA Stop: 02/16/17 13:50 Last Admin: 02/16/17 13:50 Dose: 100 ml Ketorolac Tromethamine (Toradol) 30 mg IVPUSH ONETIME ONE Stop: 02/16/17 15:13 Last Admin: 02/16/17 15:16 Dose: 30 mg Morphine Sulfate (Morphine) 4 mg IVPUSH ONETIME ONE Stop: 02/16/17 11:43 Last Admin: 02/16/17 12:03 Dose: 4 mg Morphine Sulfate (Morphine) 2 mg IVPUSH Q2H PRN PRN Reason: Pain (severe 7-10) Stop: 02/17/17 17:20 Last Admin: 02/17/17 09:04 Dose: 2 mg Morphine Sulfate (Morphine) 2 mg IVPUSH Q4H PRN PRN Reason: Pain (severe 7-10) Stop: 02/17/17 17:20 Last Admin: 02/17/17 17:03 Dose: 2 mg Morphine Sulfate (Morphine) 2 mg IVPUSH Q2H PRN PRN Reason: Pain Last Admin: 02/19/17 08:04 Dose: 2 mg Ondansetron HCl (Zofran) 4 mg IVPUSH ONETIME ONE Stop: 02/16/17 11:43 Last Admin: 02/16/17 12:03 Dose: 4 mg Oxycodone HCl (Oxycodone) 5 mg PO Q4H PRN PRN Reason: Pain Last Admin: 02/18/17 16:24 Dose: 5 mg Potassium Chloride (Klor-Con M20) 20 meq PO ONETIME ONE Stop: 02/20/17 11:13 Last Admin: 02/20/17 11:38 Dose: 20 meq Potassium Chloride (Klor-Con M20) 20 meq PO ONETIME ONE Stop: 02/20/17 11:51 Last Admin: 02/20/17 12:03 Dose: 20 meq Trazodone HCl (Trazodone) 50 mg PO ONETIME ONE Stop: 02/20/17 21:00 Last Admin: 02/20/17 21:31 Dose: 50 mg - Exam General: Alert, Oriented HEENT: Pupils Equal, Pupils Reactive Neck: Supple Lungs: Clear to Auscultation, Normal Respiratory Effort Cardiovascular: Regular Rate, Regular Rhythm GI/Abdominal Exam: Non-Tender, Distended, Abnormal Bowel Sounds (diminished ) Extremities: Normal Inspection Neurological: No New Focal Deficit - Problem List Review Problem List Initiated/Reviewed/Updated: Yes - My Orders Last 24 Hours: My Active Orders 02/20/17 Lunch Clear Liquid Diet [DIET] 02/21/17 08:45 Sodium Chloride 0.9% with KCl 20 mEq @ 125 mL/Hr (1000 mL) NS + KCl 20mEq/L [ Normal Saline with 20 mEq KCl] 1,000 ml IV ASDIRECTED 02/21/17 09:00 Potassium Chloride [Klor-Con M20] 40 meq PO DAILY - Plan Plan:: 41 yo male with history of Spinal cord Injury admitted for Travellers Diarrhea complicated by Partial Bowel Obstruction. Patient passing gas and Nausea/ Vomiting/Diarrhea improving but abdominal distension still present. Dr. Yan, General Surgery has been consulted and is on case. Appreciate the rec's. 1. Partial Bowel Obstruction: possibly related to patients history of spinal cord injury and/or chemically induced. Clear liquid diet. Target K over 4. 2. Travellers Diarrhea: on IV Metro and Cipro. Negative Campylobacter/Shiga Toxin. Awaiting Stool Culture. 3. Hypokalemia: K 3.4 this morning. start K 40 meq PO QD. Switch IVF from IV NS to IV NS with 20 meq KCl @ 125 ml/hour and run for 24 hours then switch back to IV NS. 4. Hypomagnasemia, corrected: Mg 1.8 yesterday. will recheck for today 5. DVT Prophylaxis: start Lovenox. <Nael Almonte - Last Filed: 02/21/17 12:05> - Patient Data Vitals - Most Recent: Last Vital Signs Temp 37.0 C 02/21/17 08:00 Pulse 86 02/21/17 08:00 Resp 18 02/21/17 08:00 BP 139/96 H 02/21/17 08:00 Pulse Ox 97 02/21/17 08:00 I&O - Last 24 Hours: Intake & Output 02/20/17 02/21/17 02/21/17 22:59 06:59 14:59 Intake Total 650 100 Output Total 1900 1250 Balance -1250 -1150 Lab Results Last 24 Hours: Laboratory Results - last 24 hr 02/21/17 02/21/17 02/21/17 Range/Units 05:58 05:58 05:58 WBC 7.32 (4.0-11.0) K/uL RBC 4.95 (4.50-5.90) M/uL Hgb 14.1 (13.0-17.0) g/dL Hct 40.8 (38.0-50.0) % MCV 82.4 (80.0-98.0) fL MCH 28.5 (27.0-32.0) pg MCHC 34.6 (31.0-37.0) g/dL RDW Std Deviation 38.6 (28.0-62.0) fl RDW Coeff of Jarret 13 (11.0-15.0) % Plt Count 216 (150-400) K/uL MPV 9.40 (7.40-12.00) fL Add Manual Diff YES Neutrophils % (Manual) 73 (48.0-80.0) % Band Neutrophils % 5 % Lymphocytes % (Manual) 15 L (16.0-40.0) % Monocytes % (Manual) 6 (0.0-15.0) % Eosinophils % (Manual) 1 (0.0-7.0) % Nucleated RBC % 0.0 /100WBC Absolute Seg Neuts 5.3 (1.4-5.7) Band Neutrophils # 0.4 Lymphocytes # (Manual) 1.1 (0.6-2.4) Monocytes # (Manual) 0.4 (0.0-0.8) Eosinophils # (Manual) 0.1 (0.0-0.7) Nucleated RBCs # 0 K/uL Sodium 139 (136-146) mmol/L Potassium 3.4 L (3.5-5.1) mmol/L Chloride 107 (98-110) mmol/L Carbon Dioxide 19 L (21-31) mmol/L BUN 6 (6.0-23.0) mg/dL Creatinine 0.6 (0.6-1.5) mg/dL Est Cr Clr Drug Dosing 184.65 mL/min Estimated GFR (MDRD) > 60.0 ml/min Glucose 88 (60-110) mg/dL Calcium 8.5 L (8.8-10.8) mg/dL Magnesium 1.5 (1.5-2.3) mEq/L Total Bilirubin 0.6 (0.1-1.5) mg/dL AST 22 (5-40) IU/L ALT 28 (8-54) IU/L Alkaline Phosphatase 51 (40-150) Total Protein 6.2 (6.0-8.0) g/dL Albumin 3.4 L (3.5-5.0) g/dL Globulin 2.8 (2.0-3.5) g/dL Albumin/Globulin Ratio 1.2 L (1.3-2.8) Med Orders - Current: Current Medications Metronidazole 500 mg/ Premix 100 mls @ 100 mls/hr IV Q8H [facility] Last Admin: 02/21/17 05:42 Dose: 100 mls/hr Ciprofloxacin/Dextrose 400 mg/ (Premix) 200 mls @ 200 mls/hr IV Q12H [facility] Last Admin: 02/20/17 23:11 Dose: 200 mls/hr Potassium Chloride/Sodium Chloride (Normal Saline With 20 Meq Kcl) 1,000 mls @ 125 mls/hr IV ASDIRECTED [facility] Stop: 02/22/17 08:45 Last Admin: 02/21/17 08:59 Dose: 125 mls/hr Sodium Chloride (Normal Saline) 1,000 mls @ 125 mls/hr IV ASDIRECTED [facility] Ketorolac Tromethamine (Toradol) 30 mg IVPUSH Q8H PRN PRN Reason: Pain Stop: 02/24/17 12:34 Last Admin: 02/21/17 05:40 Dose: 30 mg Lorazepam (Ativan) 1 mg IVPUSH Q6H PRN PRN Reason: Anxiety Last Admin: 02/20/17 19:27 Dose: 1 mg Ondansetron HCl (Zofran) 4 mg IVPUSH Q4H PRN PRN Reason: Nausea Last Admin: 02/19/17 08:25 Dose: 4 mg Potassium Chloride (Klor-Con M20) 40 meq PO DAILY [facility] Last Admin: 02/21/17 09:01 Dose: 40 meq Sodium Chloride (Saline Flush) 10 ml FLUSH ASDIRECTED PRN PRN Reason: Keep Vein Open Last Admin: 02/16/17 12:04 Dose: 10 ml Sodium Chloride (Saline Flush) 2.5 ml FLUSH ASDIRECTED PRN PRN Reason: Keep Vein Open Last Admin: 02/16/17 12:04 Dose: 2.5 ml Discontinued Medications Dicyclomine HCl (Bentyl) 20 mg PO ONETIME ONE Stop: 02/16/17 11:43 Last Admin: 02/16/17 12:04 Dose: 20 mg Sodium Chloride (Normal Saline) 1,000 mls @ 999 mls/hr IV STAT ONE Stop: 02/16/17 12:42 Last Admin: 02/16/17 12:05 Dose: 999 mls/hr Sodium Chloride (Normal Saline) 1,000 mls @ 999 mls/hr IV STAT ONE Stop: 02/16/17 14:03 Last Admin: 02/16/17 13:09 Dose: 999 mls/hr Sodium Chloride (Normal Saline) 1,000 mls @ 999 mls/hr IV .BOLUS ONE Stop: 02/16/17 14:04 Last Admin: 02/16/17 16:22 Dose: Not Given Potassium Chloride/Dextrose/Sod Cl (D5 Ns With 20 Meq Kcl) 1,000 mls @ 150 mls/ hr IV ASDIRECTED LISA Sodium Chloride (Normal Saline) 1,000 mls @ 125 mls/hr IV ASDIRECTED [facility] Last Admin: 02/20/17 21:31 Dose: 125 mls/hr Ciprofloxacin/Dextrose 400 mg/ (Premix) 200 mls @ 200 mls/hr IV Q12H [facility] Last Admin: 02/19/17 10:37 Dose: Not Given Potassium Chloride/Sodium Chloride (Normal Saline With 40 Meq Kcl) 1,000 mls @ 125 mls/hr IV ASDIRECTED [facility] Stop: 02/19/17 16:14 Last Admin: 02/19/17 09:19 Dose: 125 mls/hr Magnesium Sulfate 4 gm/ Premix 100 mls @ 50 mls/hr IV STAT ONE Stop: 02/19/17 10:31 Last Admin: 02/19/17 09:29 Dose: 50 mls/hr Potassium Chloride/Sodium Chloride (Normal Saline With 40 Meq Kcl) 1,000 mls @ 125 mls/hr IV ONETIME ONE Stop: 02/20/17 19:11 Last Admin: 02/20/17 11:40 Dose: 125 mls/hr Iopamidol (Isovue Multipack-370 (76%)) 100 ml IVPUSH ONETIME STA Stop: 02/16/17 13:50 Last Admin: 02/16/17 13:50 Dose: 100 ml Ketorolac Tromethamine (Toradol) 30 mg IVPUSH ONETIME ONE Stop: 02/16/17 15:13 Last Admin: 02/16/17 15:16 Dose: 30 mg Morphine Sulfate (Morphine) 4 mg IVPUSH ONETIME ONE Stop: 02/16/17 11:43 Last Admin: 02/16/17 12:03 Dose: 4 mg Morphine Sulfate (Morphine) 2 mg IVPUSH Q2H PRN PRN Reason: Pain (severe 7-10) Stop: 02/17/17 17:20 Last Admin: 02/17/17 09:04 Dose: 2 mg Morphine Sulfate (Morphine) 2 mg IVPUSH Q4H PRN PRN Reason: Pain (severe 7-10) Stop: 02/17/17 17:20 Last Admin: 02/17/17 17:03 Dose: 2 mg Morphine Sulfate (Morphine) 2 mg IVPUSH Q2H PRN PRN Reason: Pain Last Admin: 02/19/17 08:04 Dose: 2 mg Ondansetron HCl (Zofran) 4 mg IVPUSH ONETIME ONE Stop: 02/16/17 11:43 Last Admin: 02/16/17 12:03 Dose: 4 mg Oxycodone HCl (Oxycodone) 5 mg PO Q4H PRN PRN Reason: Pain Last Admin: 02/18/17 16:24 Dose: 5 mg Potassium Chloride (Klor-Con M20) 20 meq PO ONETIME ONE Stop: 02/20/17 11:13 Last Admin: 02/20/17 11:38 Dose: 20 meq Potassium Chloride (Klor-Con M20) 20 meq PO ONETIME ONE Stop: 02/20/17 11:51 Last Admin: 02/20/17 12:03 Dose: 20 meq Trazodone HCl (Trazodone) 50 mg PO ONETIME ONE Stop: 02/20/17 21:00 Last Admin: 02/20/17 21:31 Dose: 50 mg - Free Text/Narrative Note: Dr. Almonte writes: \\ I have examined this patient and talked with him and his . He desires discharge. He is taking fluids and passing gas and had a "good" BM today. Dr. Covarrubias and I have discussed the patient and his lab tests and I approved his plans. I have later discussed his situation with Dr. Yan after Dr. Covarrubias saw the patient and wrote this note. Dr. Yan has discharged the patient.
[2017-02-21] MEDS ORDERED: Potassium Chloride 20 MEQ Tab.ER PO SCH (09:00)
--- NOTE | 2017-02-21 11:03 | PCM.SURGPN ---
- General Info Date of Service: 02/21/17 Functional Status: Reports: Pain Controlled - Review of Systems General: Reports: No Symptoms (passing gas and BM X 2) - Patient Data Vitals - Most Recent: Last Vital Signs Temp 98.6 F 02/21/17 08:00 Pulse 86 02/21/17 08:00 Resp 18 02/21/17 08:00 BP 139/96 H 02/21/17 08:00 Pulse Ox 97 02/21/17 08:00 Weight - Most Recent: 213 lb 13.574 oz I&O - Last 24 Hours: Intake & Output 02/20/17 02/21/17 02/21/17 22:59 06:59 14:59 Intake Total 650 100 Output Total 1900 1250 Balance -1250 -1150 Lab Results Last 24 Hrs: Laboratory Results - last 24 hr 02/21/17 02/21/17 02/21/17 Range/Units 05:58 05:58 05:58 WBC 7.32 (4.0-11.0) K/uL RBC 4.95 (4.50-5.90) M/uL Hgb 14.1 (13.0-17.0) g/dL Hct 40.8 (38.0-50.0) % MCV 82.4 (80.0-98.0) fL MCH 28.5 (27.0-32.0) pg MCHC 34.6 (31.0-37.0) g/dL RDW Std Deviation 38.6 (28.0-62.0) fl RDW Coeff of Jarret 13 (11.0-15.0) % Plt Count 216 (150-400) K/uL MPV 9.40 (7.40-12.00) fL Add Manual Diff YES Neutrophils % (Manual) 73 (48.0-80.0) % Band Neutrophils % 5 % Lymphocytes % (Manual) 15 L (16.0-40.0) % Monocytes % (Manual) 6 (0.0-15.0) % Eosinophils % (Manual) 1 (0.0-7.0) % Nucleated RBC % 0.0 /100WBC Absolute Seg Neuts 5.3 (1.4-5.7) Band Neutrophils # 0.4 Lymphocytes # (Manual) 1.1 (0.6-2.4) Monocytes # (Manual) 0.4 (0.0-0.8) Eosinophils # (Manual) 0.1 (0.0-0.7) Nucleated RBCs # 0 K/uL Sodium 139 (136-146) mmol/L Potassium 3.4 L (3.5-5.1) mmol/L Chloride 107 (98-110) mmol/L Carbon Dioxide 19 L (21-31) mmol/L BUN 6 (6.0-23.0) mg/dL Creatinine 0.6 (0.6-1.5) mg/dL Est Cr Clr Drug Dosing 184.65 mL/min Estimated GFR (MDRD) > 60.0 ml/min Glucose 88 (60-110) mg/dL Calcium 8.5 L (8.8-10.8) mg/dL Magnesium 1.5 (1.5-2.3) mEq/L Total Bilirubin 0.6 (0.1-1.5) mg/dL AST 22 (5-40) IU/L ALT 28 (8-54) IU/L Alkaline Phosphatase 51 (40-150) Total Protein 6.2 (6.0-8.0) g/dL Albumin 3.4 L (3.5-5.0) g/dL Globulin 2.8 (2.0-3.5) g/dL Albumin/Globulin Ratio 1.2 L (1.3-2.8) Med Orders - Current: Current Medications Metronidazole 500 mg/ Premix 100 mls @ 100 mls/hr IV Q8H [facility] Last Admin: 02/21/17 05:42 Dose: 100 mls/hr Ciprofloxacin/Dextrose 400 mg/ (Premix) 200 mls @ 200 mls/hr IV Q12H [facility] Last Admin: 02/20/17 23:11 Dose: 200 mls/hr Potassium Chloride/Sodium Chloride (Normal Saline With 20 Meq Kcl) 1,000 mls @ 125 mls/hr IV ASDIRECTED [facility] Stop: 02/22/17 08:45 Last Admin: 02/21/17 08:59 Dose: 125 mls/hr Sodium Chloride (Normal Saline) 1,000 mls @ 125 mls/hr IV ASDIRECTED [facility] Ketorolac Tromethamine (Toradol) 30 mg IVPUSH Q8H PRN PRN Reason: Pain Stop: 02/24/17 12:34 Last Admin: 02/21/17 05:40 Dose: 30 mg Lorazepam (Ativan) 1 mg IVPUSH Q6H PRN PRN Reason: Anxiety Last Admin: 02/20/17 19:27 Dose: 1 mg Ondansetron HCl (Zofran) 4 mg IVPUSH Q4H PRN PRN Reason: Nausea Last Admin: 02/19/17 08:25 Dose: 4 mg Potassium Chloride (Klor-Con M20) 40 meq PO DAILY [facility] Last Admin: 02/21/17 09:01 Dose: 40 meq Sodium Chloride (Saline Flush) 10 ml FLUSH ASDIRECTED PRN PRN Reason: Keep Vein Open Last Admin: 02/16/17 12:04 Dose: 10 ml Sodium Chloride (Saline Flush) 2.5 ml FLUSH ASDIRECTED PRN PRN Reason: Keep Vein Open Last Admin: 02/16/17 12:04 Dose: 2.5 ml Discontinued Medications Dicyclomine HCl (Bentyl) 20 mg PO ONETIME ONE Stop: 02/16/17 11:43 Last Admin: 02/16/17 12:04 Dose: 20 mg Sodium Chloride (Normal Saline) 1,000 mls @ 999 mls/hr IV STAT ONE Stop: 02/16/17 12:42 Last Admin: 02/16/17 12:05 Dose: 999 mls/hr Sodium Chloride (Normal Saline) 1,000 mls @ 999 mls/hr IV STAT ONE Stop: 02/16/17 14:03 Last Admin: 02/16/17 13:09 Dose: 999 mls/hr Sodium Chloride (Normal Saline) 1,000 mls @ 999 mls/hr IV .BOLUS ONE Stop: 02/16/17 14:04 Last Admin: 02/16/17 16:22 Dose: Not Given Potassium Chloride/Dextrose/Sod Cl (D5 Ns With 20 Meq Kcl) 1,000 mls @ 150 mls/ hr IV ASDIRECTED LISA Sodium Chloride (Normal Saline) 1,000 mls @ 125 mls/hr IV ASDIRECTED [facility] Last Admin: 02/20/17 21:31 Dose: 125 mls/hr Ciprofloxacin/Dextrose 400 mg/ (Premix) 200 mls @ 200 mls/hr IV Q12H [facility] Last Admin: 02/19/17 10:37 Dose: Not Given Potassium Chloride/Sodium Chloride (Normal Saline With 40 Meq Kcl) 1,000 mls @ 125 mls/hr IV ASDIRECTED [facility] Stop: 02/19/17 16:14 Last Admin: 02/19/17 09:19 Dose: 125 mls/hr Magnesium Sulfate 4 gm/ Premix 100 mls @ 50 mls/hr IV STAT ONE Stop: 02/19/17 10:31 Last Admin: 02/19/17 09:29 Dose: 50 mls/hr Potassium Chloride/Sodium Chloride (Normal Saline With 40 Meq Kcl) 1,000 mls @ 125 mls/hr IV ONETIME ONE Stop: 02/20/17 19:11 Last Admin: 02/20/17 11:40 Dose: 125 mls/hr Iopamidol (Isovue Multipack-370 (76%)) 100 ml IVPUSH ONETIME STA Stop: 02/16/17 13:50 Last Admin: 02/16/17 13:50 Dose: 100 ml Ketorolac Tromethamine (Toradol) 30 mg IVPUSH ONETIME ONE Stop: 02/16/17 15:13 Last Admin: 02/16/17 15:16 Dose: 30 mg Morphine Sulfate (Morphine) 4 mg IVPUSH ONETIME ONE Stop: 02/16/17 11:43 Last Admin: 02/16/17 12:03 Dose: 4 mg Morphine Sulfate (Morphine) 2 mg IVPUSH Q2H PRN PRN Reason: Pain (severe 7-10) Stop: 02/17/17 17:20 Last Admin: 02/17/17 09:04 Dose: 2 mg Morphine Sulfate (Morphine) 2 mg IVPUSH Q4H PRN PRN Reason: Pain (severe 7-10) Stop: 02/17/17 17:20 Last Admin: 02/17/17 17:03 Dose: 2 mg Morphine Sulfate (Morphine) 2 mg IVPUSH Q2H PRN PRN Reason: Pain Last Admin: 02/19/17 08:04 Dose: 2 mg Ondansetron HCl (Zofran) 4 mg IVPUSH ONETIME ONE Stop: 02/16/17 11:43 Last Admin: 02/16/17 12:03 Dose: 4 mg Oxycodone HCl (Oxycodone) 5 mg PO Q4H PRN PRN Reason: Pain Last Admin: 02/18/17 16:24 Dose: 5 mg Potassium Chloride (Klor-Con M20) 20 meq PO ONETIME ONE Stop: 02/20/17 11:13 Last Admin: 02/20/17 11:38 Dose: 20 meq Potassium Chloride (Klor-Con M20) 20 meq PO ONETIME ONE Stop: 02/20/17 11:51 Last Admin: 02/20/17 12:03 Dose: 20 meq Trazodone HCl (Trazodone) 50 mg PO ONETIME ONE Stop: 02/20/17 21:00 Last Admin: 02/20/17 21:31 Dose: 50 mg - Exam GI/Abdominal Exam: Normal Bowel Sounds, Soft (decreased distention, and soft, nontender) - Problem List Review Problem List Initiated/Reviewed/Updated: Yes - My Orders Last 24 Hours: Active Orders 24 hr Category Date Time Status Clear Liquid Diet [DIET] Diet 02/20/17 Lunch Active MAGNESIUM [CHEM] AM Lab 02/23/17 05:11 Ordered MAGNESIUM [CHEM] AM Lab 02/24/17 05:11 Ordered MAGNESIUM [CHEM] AM Lab 02/25/17 05:11 Ordered MAGNESIUM [CHEM] AM Lab 02/26/17 05:11 Ordered MAGNESIUM [CHEM] AM Lab 02/27/17 05:11 Ordered NS + KCl 20mEq/L [Normal Saline with 20 mEq KCl] 1,000 Med 02/21/17 08:45 Active ml IV ASDIRECTED Potassium Chloride [Klor-Con M20] Med 02/21/17 09:00 Active 40 meq PO DAILY Sodium Chloride 0.9% [Normal Saline] 1,000 ml Med 02/22/17 09:00 Active IV ASDIRECTED Medication Orders Metronidazole 500 mg/ Premix 100 mls @ 100 mls/hr IV Q8H [facility] Last Admin: 02/21/17 05:42 Dose: 100 mls/hr Infusion: 02/20/17 22:31 Dose: 100 mls/hr Admin: 02/20/17 21:31 Dose: 100 mls/hr Infusion: 02/20/17 14:43 Dose: 100 mls/hr Admin: 02/20/17 13:43 Dose: 100 mls/hr Infusion: 02/20/17 07:08 Dose: 100 mls/hr Admin: 02/20/17 06:08 Dose: 100 mls/hr Infusion: 02/19/17 22:42 Dose: 100 mls/hr Admin: 02/19/17 21:42 Dose: 100 mls/hr Infusion: 02/19/17 14:43 Dose: 100 mls/hr Admin: 02/19/17 13:43 Dose: 100 mls/hr Infusion: 02/19/17 06:46 Dose: 100 mls/hr Admin: 02/19/17 05:46 Dose: 100 mls/hr Infusion: 02/19/17 00:46 Dose: 100 mls/hr Admin: 02/18/17 23:46 Dose: 100 mls/hr Infusion: 02/18/17 14:37 Dose: 100 mls/hr Admin: 02/18/17 13:37 Dose: 100 mls/hr Infusion: 02/18/17 07:37 Dose: 100 mls/hr Admin: 02/18/17 06:37 Dose: 100 mls/hr Infusion: 02/18/17 00:14 Dose: 100 mls/hr Admin: 02/17/17 23:14 Dose: 100 mls/hr Infusion: 02/17/17 14:35 Dose: 100 mls/hr Admin: 02/17/17 13:35 Dose: 100 mls/hr Infusion: 02/17/17 07:22 Dose: 100 mls/hr Admin: 02/17/17 06:22 Dose: 100 mls/hr Infusion: 02/17/17 00:55 Dose: 100 mls/hr Admin: 02/16/17 23:55 Dose: 100 mls/hr Ciprofloxacin/Dextrose 400 mg/ (Premix) 200 mls @ 200 mls/hr IV Q12H [facility] Last Admin: 02/20/17 23:11 Dose: 200 mls/hr Infusion: 02/20/17 12:21 Dose: 200 mls/hr Admin: 02/20/17 11:21 Dose: 200 mls/hr Infusion: 02/20/17 00:41 Dose: 200 mls/hr Admin: 02/19/17 23:41 Dose: 200 mls/hr Infusion: 02/19/17 13:22 Dose: 200 mls/hr Admin: 02/19/17 12:22 Dose: 200 mls/hr Potassium Chloride/Sodium Chloride (Normal Saline With 20 Meq Kcl) 1,000 mls @ 125 mls/hr IV ASDIRECTED [facility] Stop: 02/22/17 08:45 Last Admin: 02/21/17 08:59 Dose: 125 mls/hr Sodium Chloride (Normal Saline) 1,000 mls @ 125 mls/hr IV ASDIRECTED [facility] Ketorolac Tromethamine (Toradol) 30 mg IVPUSH Q8H PRN PRN Reason: Pain Stop: 02/24/17 12:34 Last Admin: 02/21/17 05:40 Dose: 30 mg Admin: 02/20/17 18:10 Dose: 30 mg Admin: 02/20/17 08:39 Dose: 30 mg Admin: 02/20/17 00:39 Dose: 30 mg Admin: 02/19/17 14:18 Dose: 30 mg Lorazepam (Ativan) 1 mg IVPUSH Q6H PRN PRN Reason: Anxiety Last Admin: 02/20/17 19:27 Dose: 1 mg Admin: 02/20/17 10:42 Dose: 1 mg Admin: 02/18/17 19:53 Dose: 1 mg Admin: 02/18/17 08:59 Dose: 1 mg Admin: 02/17/17 23:15 Dose: 1 mg Admin: 02/17/17 15:36 Dose: 1 mg Ondansetron HCl (Zofran) 4 mg IVPUSH Q4H PRN PRN Reason: Nausea Last Admin: 02/19/17 08:25 Dose: 4 mg Admin: 02/18/17 03:21 Dose: 4 mg Admin: 02/17/17 21:37 Dose: 4 mg Admin: 02/17/17 15:35 Dose: 4 mg Potassium Chloride (Klor-Con M20) 40 meq PO DAILY [facility] Last Admin: 02/21/17 09:01 Dose: 40 meq Sodium Chloride (Saline Flush) 10 ml FLUSH ASDIRECTED PRN PRN Reason: Keep Vein Open Last Admin: 02/16/17 12:04 Dose: 10 ml Sodium Chloride (Saline Flush) 2.5 ml FLUSH ASDIRECTED PRN PRN Reason: Keep Vein Open Last Admin: 02/16/17 12:04 Dose: 2.5 ml - Assessment Assessment (Free Text/Narrative):: resolving ileus; passing gas and having BM, nontender; pt is requesting to be home to continue treatment; pt is on the resolving ends of ileus; will dc on liquid diet and fu with medical attention in a wk. keep on liquid diet - Plan Plan (Free Text/Narrative):: resolving ileus; passing gas and having BM, nontender; pt is requesting to be home to continue treatment; pt is on the resolving ends of ileus; will dc on liquid diet and fu with medical attention in a wk. keep on liquid diet
[2017-02-21] MEDS: Ciprofloxacin in D5W 400 MG in Premix Bag 1 BAG IV SCH ×2 (12:23)
[2017-02-21 12:33] VITALS: BP 132/84
--- NOTE | 2017-02-21 12:54 | PCM.DCSUM1 ---
Discharge Summary - Discharge Data Discharge Date: 02/21/17 Discharge Disposition: Home, Self-Care 01 Condition: Stable - Patient Instructions Diet: Clear Liquid Diet Diet, Other: continue clear liquid diet until arrival to your ultimate destination Activity: As Tolerated Activity, Other: No work for 1 month. May return if cleared by your pcp Driving: Do Not Drive Showering/Bathing: May Shower Notify Provider of: Fever, Increased Pain, Swelling and Redness, Drainage, Nausea and/or Vomiting - Discharge Plan Home Medications: Home Meds . [No Known Home Meds] 02/16/17 [History] Patient Handouts: Small Bowel Obstruction, [id number] - Discharge Summary/Plan Comment DC Time >30 min.: No - Patient Data Vitals - Most Recent: Last Vital Signs Temp 37.1 C 02/21/17 12:00 Pulse 88 02/21/17 12:00 Resp 18 02/21/17 12:00 BP 132/84 02/21/17 12:00 Pulse Ox 98 02/21/17 12:00 Weight - Most Recent: 97 kg I&O - Last 24 hours: Intake & Output 02/20/17 02/21/17 02/21/17 22:59 06:59 14:59 Intake Total 650 100 Output Total 1900 1250 Balance -1250 -1150 Lab Results - Last 24 hrs: Laboratory Results - last 24 hr 02/21/17 02/21/17 02/21/17 Range/Units 05:58 05:58 05:58 WBC 7.32 (4.0-11.0) K/uL RBC 4.95 (4.50-5.90) M/uL Hgb 14.1 (13.0-17.0) g/dL Hct 40.8 (38.0-50.0) % MCV 82.4 (80.0-98.0) fL MCH 28.5 (27.0-32.0) pg MCHC 34.6 (31.0-37.0) g/dL RDW Std Deviation 38.6 (28.0-62.0) fl RDW Coeff of Jarret 13 (11.0-15.0) % Plt Count 216 (150-400) K/uL MPV 9.40 (7.40-12.00) fL Add Manual Diff YES Neutrophils % (Manual) 73 (48.0-80.0) % Band Neutrophils % 5 % Lymphocytes % (Manual) 15 L (16.0-40.0) % Monocytes % (Manual) 6 (0.0-15.0) % Eosinophils % (Manual) 1 (0.0-7.0) % Nucleated RBC % 0.0 /100WBC Absolute Seg Neuts 5.3 (1.4-5.7) Band Neutrophils # 0.4 Lymphocytes # (Manual) 1.1 (0.6-2.4) Monocytes # (Manual) 0.4 (0.0-0.8) Eosinophils # (Manual) 0.1 (0.0-0.7) Nucleated RBCs # 0 K/uL Sodium 139 (136-146) mmol/L Potassium 3.4 L (3.5-5.1) mmol/L Chloride 107 (98-110) mmol/L Carbon Dioxide 19 L (21-31) mmol/L BUN 6 (6.0-23.0) mg/dL Creatinine 0.6 (0.6-1.5) mg/dL Est Cr Clr Drug Dosing 184.65 mL/min Estimated GFR (MDRD) > 60.0 ml/min Glucose 88 (60-110) mg/dL Calcium 8.5 L (8.8-10.8) mg/dL Magnesium 1.5 (1.5-2.3) mEq/L Total Bilirubin 0.6 (0.1-1.5) mg/dL AST 22 (5-40) IU/L ALT 28 (8-54) IU/L Alkaline Phosphatase 51 (40-150) Total Protein 6.2 (6.0-8.0) g/dL Albumin 3.4 L (3.5-5.0) g/dL Globulin 2.8 (2.0-3.5) g/dL Albumin/Globulin Ratio 1.2 L (1.3-2.8) Med Orders - Current: Current Medications Metronidazole 500 mg/ Premix 100 mls @ 100 mls/hr IV Q8H [facility] Last Admin: 02/21/17 05:42 Dose: 100 mls/hr Ciprofloxacin/Dextrose 400 mg/ (Premix) 200 mls @ 200 mls/hr IV Q12H [facility] Last Admin: 02/21/17 12:23 Dose: 200 mls/hr Potassium Chloride/Sodium Chloride (Normal Saline With 20 Meq Kcl) 1,000 mls @ 125 mls/hr IV ASDIRECTED [facility] Stop: 02/22/17 08:45 Last Admin: 02/21/17 08:59 Dose: 125 mls/hr Sodium Chloride (Normal Saline) 1,000 mls @ 125 mls/hr IV ASDIRECTED [facility] Ketorolac Tromethamine (Toradol) 30 mg IVPUSH Q8H PRN PRN Reason: Pain Stop: 02/24/17 12:34 Last Admin: 02/21/17 05:40 Dose: 30 mg Lorazepam (Ativan) 1 mg IVPUSH Q6H PRN PRN Reason: Anxiety Last Admin: 02/20/17 19:27 Dose: 1 mg Ondansetron HCl (Zofran) 4 mg IVPUSH Q4H PRN PRN Reason: Nausea Last Admin: 02/19/17 08:25 Dose: 4 mg Potassium Chloride (Klor-Con M20) 40 meq PO DAILY [facility] Last Admin: 02/21/17 09:01 Dose: 40 meq Sodium Chloride (Saline Flush) 10 ml FLUSH ASDIRECTED PRN PRN Reason: Keep Vein Open Last Admin: 02/16/17 12:04 Dose: 10 ml Sodium Chloride (Saline Flush) 2.5 ml FLUSH ASDIRECTED PRN PRN Reason: Keep Vein Open Last Admin: 02/16/17 12:04 Dose: 2.5 ml Discontinued Medications Dicyclomine HCl (Bentyl) 20 mg PO ONETIME ONE Stop: 02/16/17 11:43 Last Admin: 02/16/17 12:04 Dose: 20 mg Sodium Chloride (Normal Saline) 1,000 mls @ 999 mls/hr IV STAT ONE Stop: 02/16/17 12:42 Last Admin: 02/16/17 12:05 Dose: 999 mls/hr Sodium Chloride (Normal Saline) 1,000 mls @ 999 mls/hr IV STAT ONE Stop: 02/16/17 14:03 Last Admin: 02/16/17 13:09 Dose: 999 mls/hr Sodium Chloride (Normal Saline) 1,000 mls @ 999 mls/hr IV .BOLUS ONE Stop: 02/16/17 14:04 Last Admin: 02/16/17 16:22 Dose: Not Given Potassium Chloride/Dextrose/Sod Cl (D5 Ns With 20 Meq Kcl) 1,000 mls @ 150 mls/ hr IV ASDIRECTED [facility] Sodium Chloride (Normal Saline) 1,000 mls @ 125 mls/hr IV ASDIRECTED [facility] Last Admin: 02/20/17 21:31 Dose: 125 mls/hr Ciprofloxacin/Dextrose 400 mg/ (Premix) 200 mls @ 200 mls/hr IV Q12H [facility] Last Admin: 02/19/17 10:37 Dose: Not Given Potassium Chloride/Sodium Chloride (Normal Saline With 40 Meq Kcl) 1,000 mls @ 125 mls/hr IV ASDIRECTED [facility] Stop: 02/19/17 16:14 Last Admin: 02/19/17 09:19 Dose: 125 mls/hr Magnesium Sulfate 4 gm/ Premix 100 mls @ 50 mls/hr IV STAT ONE Stop: 02/19/17 10:31 Last Admin: 02/19/17 09:29 Dose: 50 mls/hr Potassium Chloride/Sodium Chloride (Normal Saline With 40 Meq Kcl) 1,000 mls @ 125 mls/hr IV ONETIME ONE Stop: 02/20/17 19:11 Last Admin: 02/20/17 11:40 Dose: 125 mls/hr Iopamidol (Isovue Multipack-370 (76%)) 100 ml IVPUSH ONETIME STA Stop: 02/16/17 13:50 Last Admin: 02/16/17 13:50 Dose: 100 ml Ketorolac Tromethamine (Toradol) 30 mg IVPUSH ONETIME ONE Stop: 02/16/17 15:13 Last Admin: 02/16/17 15:16 Dose: 30 mg Morphine Sulfate (Morphine) 4 mg IVPUSH ONETIME ONE Stop: 02/16/17 11:43 Last Admin: 02/16/17 12:03 Dose: 4 mg Morphine Sulfate (Morphine) 2 mg IVPUSH Q2H PRN PRN Reason: Pain (severe 7-10) Stop: 02/17/17 17:20 Last Admin: 02/17/17 09:04 Dose: 2 mg Morphine Sulfate (Morphine) 2 mg IVPUSH Q4H PRN PRN Reason: Pain (severe 7-10) Stop: 02/17/17 17:20 Last Admin: 02/17/17 17:03 Dose: 2 mg Morphine Sulfate (Morphine) 2 mg IVPUSH Q2H PRN PRN Reason: Pain Last Admin: 02/19/17 08:04 Dose: 2 mg Ondansetron HCl (Zofran) 4 mg IVPUSH ONETIME ONE Stop: 02/16/17 11:43 Last Admin: 02/16/17 12:03 Dose: 4 mg Oxycodone HCl (Oxycodone) 5 mg PO Q4H PRN PRN Reason: Pain Last Admin: 02/18/17 16:24 Dose: 5 mg Potassium Chloride (Klor-Con M20) 20 meq PO ONETIME ONE Stop: 02/20/17 11:13 Last Admin: 02/20/17 11:38 Dose: 20 meq Potassium Chloride (Klor-Con M20) 20 meq PO ONETIME ONE Stop: 02/20/17 11:51 Last Admin: 02/20/17 12:03 Dose: 20 meq Trazodone HCl (Trazodone) 50 mg PO ONETIME ONE Stop: 02/20/17 21:00 Last Admin: 02/20/17 21:31 Dose: 50 mg *Q Meaningful Use (DIS) - VTE *Q VTE Criteria *Q: - Stroke *Q Stroke Criteria *Q: - AMI *Q AMI Criteria *Q:
[2017-02-22] MEDS ORDERED: Sodium Chloride 0.9% 1,000 ML IV SCH (09:00)
== END 2017-02-21 14:45 | disposition home or self-care (01) | DRG 390 ==
LOC: MW.ED 11:15 → MW.MS 15:33 → OBSVTOIN 02-18 10:49 → MW.MS 02-19 10:17
PROVIDERS: ADMIT Internal Medicine; ATTEND Internal Medicine
DX: K56.600 Partial intestinal obstruction, unspecified as to cause (principal); E87.6 Hypokalemia; E83.42 Hypomagnesemia; R19.7 Diarrhea, unspecified
CPT/HCPCS: 36415; 74020; 74020-26; 74177; 74177-26; 80048; 80053; 81001; 82150; 83630; 83690; 83735; 85025; 87046; 87077; 87899; 96361; 96365; 96366; 96367; 96374; 96375; 96376; 99283; 99285-25; A9270-GY; G0378; J0744; J1885; J2060; J2270; J2405; J3475; J3480; J7040; Q9967